=== PATIENT | male | born 1930 | race Caucasian/White ===

== ENCOUNTER 2016-10-17 15:50 | Emergency (ER) | payer OTHER, MEDICARE ==
[~2016-10-17] VITALS: Ht 170.1 cm; Wt 84.8 kg
[~2016-10-17 15:50] MED LIST: FLOMAX0.4 MG PO; LEVOFLOXACIN500 MG PO; PROPECIA1 MG PO; PT UNSURE OF MEDS; SIMVASTATIN1 GM PO; VIBRAMYCIN100 MG PO; VITAMIN D22000 UNIT PO; ZOLOFT100 MG PO
[2016-10-17 16:51] LABS: BASO % 0.6 % (0.0-1.0); EOS # 0.2 10*3/uL (0.0-0.4); HEMATOCRIT 39.2 % (42.0-52.0); HEMOGLOBIN 12.6 g/dl (14.0-18.0); LYMPH # 1.5 10*3/uL (1.3-4.4); LYMPH % 22.9 % (27.0-41.0); MEAN CORPUSCULAR HGB 29.6 pg (27.0-31.0); MEAN CORPUSCULAR HGB CONC 32.1 g/dl (33.0-37.0); MEAN PLATELET VOLUME 8.9 fl (9.6-12.3); MONO # 0.9 10*3/uL (0.1-1.0); MONO % 13.9 % (3.0-9.0); NEUT # 3.8 10*3/uL (2.3-7.9); NEUT % 59.4 % (47.0-73.0); PLATELET COUNT AUTOMATED 199 10*3/uL (130-400); RED BLOOD COUNT 4.26 10*6/uL (4.50-5.90); RED CELL DISTRI WIDTH 14.7 % (0-14.5); WHITE BLOOD COUNT 6.3 10*3/uL (4.8-10.8)
[2016-10-17 17:03] LABS: BUN 19 mg/dl (7-24); CARBON DIOXIDE 28 mmol/L (21-32); CHLORIDE 108 mmol/L (98-107); EST GLOM FILT AFRICAN AMERICAN > 60 ml/min; GLUCOSE 105 mg/dL (65-99); POTASSIUM 4.1 mmol/L (3.5-5.1); SODIUM 145 mmol/L (136-145)
[2016-10-17 18:34] LABS: BILIRUBIN NEGATIVE (NEGATIVE); BLOOD NEGATIVE (NEGATIVE); CLARITY CLEAR (CLEAR); COLOR YELLOW (YELLOW); GLUCOSE NEGATIVE (NEGATIVE); KETONE NEGATIVE (NEGATIVE); LEUKO ESTERASE 1+ (NEGATIVE); NITRITE NEGATIVE (NEGATIVE); PROTEIN NEGATIVE (NEGATIVE); SPECIFIC GRAVITY 1.025 (1.005-1.030); UROBILINOGEN 0.2 E.U./dl (0.2-1.0)
[2016-10-17 18:46] LABS: URINE REFLEX COMMENT YES (NO)
[2016-10-17] MEDS ORDERED: KEFLEX500 M1 PO (22:24)
[2016-10-17] MEDS ORDERED: CIPRO500 MG PO (22:24)
== END 2016-10-17 22:28 | disposition home or self-care (01) ==
LOC: ED 15:50
PROVIDERS: Student in an Organized Health Care Education/Training Program
DX: N39.0 Urinary tract infection, site not specified (principal); L03.116 Cellulitis of left lower limb; L03.115 Cellulitis of right lower limb; E78.00 Pure hypercholesterolemia, unspecified; Z88.0 Allergy status to penicillin; Z88.2 Allergy status to sulfonamides; Z88.6 Allergy status to analgesic agent; Z79.899 Other long term (current) drug therapy

== ENCOUNTER 2017-10-22 16:38 | Inpatient (IN) | payer OTHER ==
[~2017-10-22] VITALS: Ht 170.2 cm; Wt 76.0 kg
[~2017-10-22 16:38] MED LIST changes: +CIPRO500 MG PO; +KEFLEX500 M1 PO
[2017-10-22 16:40] VITALS: BP 145/64
[2017-10-22 17:28] LABS: BASO % 0.1 % (0.0-1.0); EOS % 0.3 % (1.0-4.0); LYMPH # 1.1 10*3/uL (1.3-4.4); LYMPH % 15.5 % (27.0-41.0); MEAN CELL VOLUME 89.9 fl (80.0-94.0); MEAN CORPUSCULAR HGB CONC 32.3 g/dl (33.0-37.0); MEAN PLATELET VOLUME 9.6 fl (9.6-12.3); MONO # 1.4 10*3/uL (0.1-1.0); NEUT # 4.6 10*3/uL (2.3-7.9); NEUT % 63.7 % (47.0-73.0); PLATELET COUNT AUTOMATED 195 10*3/uL (130-400); RED BLOOD COUNT 3.45 10*6/uL (4.50-5.90); RED CELL DISTRI WIDTH 13.9 % (0-14.5); WHITE BLOOD COUNT 7.2 10*3/uL (4.8-10.8)
[2017-10-22 17:40] VITALS: BP 144/72
[2017-10-22 17:43] LABS: ALBUMIN 3.3 gm/dl (3.1-4.5); ALKALINE PHOSPHATASE 95 U/L (45-117); BUN 12 mg/dl (7-24); CHLORIDE 104 mmol/L (98-107); CREATININE 1.29 mg/dL (0.70-1.30); POTASSIUM 4.1 mmol/L (3.5-5.1); SGOT/AST 17 IU/L (3-35); SGPT/ALT 18 U/L (12-78); SODIUM 141 mmol/L (136-145); TOTAL PROTEIN 7.2 gm/dL (6.4-8.2)
[2017-10-22 18:40] VITALS: BP 140/72
[2017-10-22 19:40] VITALS: BP 136/78
[2017-10-22 20:30] VITALS: BP 130/52
[2017-10-22] MEDS ORDERED: SIMVASTATIN10 MG PO (21:44)
[2017-10-22] MEDS ORDERED: ELIQUIS5 M1 PO (21:44)
[2017-10-22] MEDS ORDERED: AMLODIPINE BESY10 MG PO (21:45)
[2017-10-22] MEDS ORDERED: FINASTERIDE5 M1 PO (21:46)
[2017-10-22] MEDS ORDERED: RANITIDINE HCL150 M1 PO (21:48)
[2017-10-22] MEDS ORDERED: LOTRIMIN 1%15 GM PO (21:49)
[2017-10-23] VITALS: BP 122/59
[2017-10-23 01:54] LABS: HEMATOCRIT 30.9 % (42.0-52.0); HEMOGLOBIN 10.1 g/dl (14.0-18.0); MEAN CELL VOLUME 88.8 fl (80.0-94.0); MEAN CORPUSCULAR HGB CONC 32.7 g/dl (33.0-37.0); MEAN PLATELET VOLUME 9.7 fl (9.6-12.3); PLATELET COUNT AUTOMATED 208 10*3/uL (130-400); RED BLOOD COUNT 3.48 10*6/uL (4.50-5.90); RED CELL DISTRI WIDTH 13.7 % (0-14.5); WHITE BLOOD COUNT 9.3 10*3/uL (4.8-10.8)
[2017-10-23 02:07] LABS: ACT PARTIAL THROMBO TIME 31.7 SECONDS (20.8-31.5); INTERNATIONAL NORM RATIO 1.2 (2.0-3.5)
[2017-10-23 02:13] LABS: ALBUMIN 3.3 gm/dl (3.1-4.5); ALKALINE PHOSPHATASE 95 U/L (45-117); BUN 13 mg/dl (7-24); CHLORIDE 103 mmol/L (98-107); CHOLESTEROL 129 mg/dL (<200); CREATININE 1.24 mg/dL (0.70-1.30); FREE T4 1.63 ng/dl (0.76-1.46); PHOSPHOROUS 2.2 mg/dL (2.5-4.9); POTASSIUM 3.7 mmol/L (3.5-5.1); SGOT/AST 17 IU/L (3-35); SGPT/ALT 17 U/L (12-78); SODIUM 139 mmol/L (136-145); TOTAL IRON BINDING CAPACITY 242 ug/dl (250-450); TOTAL PROTEIN 7.6 gm/dL (6.4-8.2); TRIGLYCERIDES 84 mg/dl (<150); VLDL CHOLESTEROL 17 mg/dL (6-40)
[2017-10-23 02:15] LABS: PLATELET SUFFICIENCY NORMAL (NORMAL); TOTAL CELLS COUNTED 100 #CELLS
[2017-10-23 02:30] LABS: HDL CHOLESTEROL 52 mg/dl (40-60); IRON 17 ug/dL (65-175); LDL CHOLESTEROL 60 mg/dL (9-159); THYROID STIM HORMONE (HS) 0.902 uIU/ml (0.358-4.75)
[2017-10-23 08:00] VITALS: BP 127/53
[2017-10-23 16:00] VITALS: BP 122/57
[2017-10-23 20:00] VITALS: BP 146/59
[2017-10-24] VITALS: BP 138/54
[2017-10-24 08:00] VITALS: BP 138/59
[2017-10-24 09:00] LABS: HEMOGLOBIN 9.9 g/dl (14.0-18.0); LYMPH # 0.8 10*3/uL (1.3-4.4); LYMPH % 8.3 % (27.0-41.0); MEAN CELL VOLUME 88.2 fl (80.0-94.0); MEAN CORPUSCULAR HGB 29.1 pg (27.0-31.0); MEAN PLATELET VOLUME 9.7 fl (9.6-12.3); MONO # 1.1 10*3/uL (0.1-1.0); MONO % 11.4 % (3.0-9.0); NEUT # 7.6 10*3/uL (2.3-7.9); NEUT % 79.5 % (47.0-73.0); RED CELL DISTRI WIDTH 13.9 % (0-14.5); WHITE BLOOD COUNT 9.5 10*3/uL (4.8-10.8)
[2017-10-24 09:13] LABS: BUN 19 mg/dl (7-24); CHLORIDE 105 mmol/L (98-107); CREATININE 1.17 mg/dL (0.70-1.30); POTASSIUM 3.4 mmol/L (3.5-5.1); SODIUM 140 mmol/L (136-145)
[2017-10-24 09:29] LABS: PLATELET COUNT AUTOMATED 283 10*3/uL (130-400)
[2017-10-24 16:00] VITALS: BP 115/49
[2017-10-24 20:00] VITALS: BP 134/63
[2017-10-25] VITALS: BP 138/69
[2017-10-25 08:00] VITALS: BP 116/48
[2017-10-25] MEDS ORDERED: LEVAQUIN750 M1 PO (11:03)
[2017-10-25] MEDS ORDERED: PREDNISONE10 MG PO (11:13)
[2017-10-25 12:00] VITALS: BP 122/56
== END 2017-10-25 14:30 | disposition home or self-care (01) | DRG 190 ==
LOC: ED 16:38 → 4E 19:34 → EDHOLD 19:34 → 4E 19:51
PROVIDERS: Internal Medicine; Nurse Practitioner Family; Student in an Organized Health Care Education/Training Program
DX: J44.0 Chronic obstructive pulmonary disease with (acute) lower respiratory infection (principal); J18.9 Pneumonia, unspecified organism; E87.2 Acidosis; I48.91 Unspecified atrial fibrillation; J44.1 Chronic obstructive pulmonary disease with (acute) exacerbation; D50.9 Iron deficiency anemia, unspecified; E78.00 Pure hypercholesterolemia, unspecified; N40.0 Benign prostatic hyperplasia without lower urinary tract symptoms; E78.5 Hyperlipidemia, unspecified; F32.9 Major depressive disorder, single episode, unspecified; Z88.0 Allergy status to penicillin; Z88.2 Allergy status to sulfonamides; Z88.6 Allergy status to analgesic agent; Z79.899 Other long term (current) drug therapy; Z87.891 Personal history of nicotine dependence; Z82.49 Family history of ischemic heart disease and other diseases of the circulatory system; Z83.6 Family history of other diseases of the respiratory system; Z80.0 Family history of malignant neoplasm of digestive organs

== ENCOUNTER 2017-12-04 09:15 | Inpatient (IN) | payer OTHER ==
[~2017-12-04] VITALS: Ht 167.6 cm; Wt 76.2 kg
[2017-12-04] VITALS (12 sets, daily range): BP systolic 97–162; BP diastolic 49–98
--- NOTE | ~2017-12-04 | O ---
[place], [place] OPERATIVE NOTE NAME: SISI SHOEMAKER UNIT #: [id number] ROOM: [facility] DOCTOR: MARTIN ARSHAD MD BIRTHDATE: [birth year] DOS: 12/04/2017 INDICATIONS: The patient has presented with chief complaint of tiredness, profound anemia, hemoglobin of 6, ____ Eliquis 5 mg b.i.d. He has had a colonoscopy recently in [facility]. PROCEDURE: Today's procedure part of investigation is panendoscopy. PREMEDICATION: Versed and Diprivan. SCOPE: Olympus forward-viewing gastroscope Q10 video. REPORT: After putting the patient in left lateral position and application of lubricant to the scope, the scope was introduced. Thereafter, under direct visualization, advanced through the length of esophagus without difficulty. Gastric pouch was entered. Mild gastritis seen. Duodenal bulb, second and third part inspected. Duodenitis was identified, photographed. Hypertrophic Dora's glands was noticed. No biopsy obtained due to the fact that the patient has been on Eliquis. Scope was gradually withdrawn. GI reflexion of the scope reveals cardia to be benign. Air was suctioned out. The patient was extubated, tolerated procedure well. IMPRESSION: Mild gastritis, duodenitis. PLAN AND DISCUSSION: Protonix 40 mg daily. We would suffice management. He had rectal examination also done. I did not see gross blood in his stool. He has had a colonoscopy done 3 weeks ago in [place] and he has been told he does not need another colonoscopy. I presume that means that he did not have any pathology in the colon. The source of blood loss, most likely secondary to anticoagulant-induced and supportive management after transfusion. Diet is going to be regular. Thank you very much indeed. [place], [place] OPERATIVE NOTE NAME: SISI SHOEMAKER UNIT #: [id number] ROOM: [facility] DOCTOR: MARTIN ARSHAD MD BIRTHDATE: [birth year] MARTIN ARSHAD MD CM:OPRECORD:OPERATIVE NOTE [id number] MARTIN ARSHAD MD 12/04/17 1701 interface
--- NOTE | ~2017-12-04 | CON ---
[place], [place] REPORT OF CONSULTATION NAME: SISI SHOEMAKER UNIT #: [id number] ROOM: [facility] DOCTOR: PAVITHRA RASMUSSENMARTIN BIRTHDATE: [birth year] DOS: 12/04/2017 HISTORY OF PRESENT ILLNESS: An 87-year-old patient who has presented with melanotic stools over the past few days. He has stopped his Eliquis since yesterday. When he presents to the ER, his H and H is 6 and 22 with platelet count of 240. INR normal. His BUN and creatinine 15 and 1.5. His electrolytes balance, liver function test normal. Troponin within normal limit. PAST MEDICAL HISTORY: Atrial fibrillation, hyperlipidemia, hypertension, vitamin D and B12 deficiency, gastroesophageal reflux, BPH, depression. PAST SURGICAL HISTORY: Cataracts, tonsillectomy and right knee and left knee arthroscopies. SOCIAL HISTORY: Old history of alcohol passive smoker. FAMILY HISTORY: Noncontributory. ALLERGIES: PENICILLIN, SULFA, ASPIRIN. MEDICATIONS: List has been reviewed, Eliquis 5 mg b.i.d. in addition to others. REVIEW OF SYSTEMS: HEENT: Denies double vision, blurred vision. RESPIRATORY: Denies acute shortness of breath. CARDIOVASCULAR: Denies acute chest pain. DIGESTIVE SYSTEM: Melanotic stool. PHYSICAL EXAMINATION: VITAL SIGNS: Stable. HEENT: Head normocephalic, nontraumatic. Mouth and buccal mucosa benign. NECK: Supple, no thyromegaly, no cervical lymphadenopathy. CHEST: Symmetric anatomy, equal expansion. No wheeze, no rhonchi. HEART: Atrial fibrillation, moderate ventricular response. ABDOMEN: Globular, soft. No hepato-organomegaly. Bowel sounds present. No pulsatile mass. EXTREMITIES: No cyanosis, no pedal edema. Knee scars of surgery was noticed. NEUROLOGIC: Alert, oriented to time, place, person. IMPRESSION: Profound anemia, melanotic stool, hemoglobin of 6. PLAN: Withholding Eliquis, endoscopic assessment of upper GI tract. OTHER ADJUNCTIVE DIAGNOSES: Atrial fibrillation, hypertension, hyperlipidemia. All has been recognized. PLAN AND DISCUSSION: Urgent endoscopy of upper GI tract due to profound anemia on continuation of blood loss. His Eliquis has been on hold since yesterday. [place], [place] REPORT OF CONSULTATION NAME: SISI SHOEMAKER UNIT #: [id number] ROOM: [facility] DOCTOR: PAVITHRA RASMUSSEN,MARTIN BIRTHDATE: [birth year] MARTIN ARSHAD MD CM:CONSTR:REPORT OF CONSULTATION 1512 12/05/17 0559 interface
[~2017-12-04 09:15] MED LIST changes: +AMLODIPINE BESY10 MG PO; +ELIQUIS5 M1 PO; +FINASTERIDE5 M1 PO; +LEVAQUIN750 M1 PO; +LOTRIMIN 1%15 GM PO; +PREDNISONE10 MG PO; +RANITIDINE HCL150 M1 PO; +SIMVASTATIN20 MG PO
[2017-12-04 09:58] LABS: BASO # 0.1 10*3/uL (0.0-0.1); BASO % 0.9 % (0.0-1.0); EOS # 0.1 10*3/uL (0.0-0.4); EOS % 1.2 % (1.0-4.0); HEMATOCRIT 22.3 % (42.0-52.0); HEMOGLOBIN 6.8 g/dl (14.0-18.0); LYMPH # 1.3 10*3/uL (1.3-4.4); LYMPH % 23.3 % (27.0-41.0); MEAN CELL VOLUME 83.2 fl (80.0-94.0); MEAN CORPUSCULAR HGB 25.4 pg (27.0-31.0); MEAN CORPUSCULAR HGB CONC 30.5 g/dl (33.0-37.0); MEAN PLATELET VOLUME 8.6 fl (9.6-12.3); MONO # 0.9 10*3/uL (0.1-1.0); MONO % 14.9 % (3.0-9.0); NEUT # 3.4 10*3/uL (2.3-7.9); NEUT % 59.3 % (47.0-73.0); PLATELET COUNT AUTOMATED 249 10*3/uL (130-400); RED BLOOD COUNT 2.68 10*6/uL (4.50-5.90); RED CELL DISTRI WIDTH 15.6 % (0-14.5); WHITE BLOOD COUNT 5.7 10*3/uL (4.8-10.8)
[2017-12-04 10:09] LABS: ACT PARTIAL THROMBO TIME 24.3 SECONDS (20.8-31.5)
[2017-12-04 10:16] LABS: ALBUMIN 3.5 gm/dl (3.1-4.5); ALKALINE PHOSPHATASE 92 U/L (45-117); BUN 15 mg/dl (7-24); CHLORIDE 109 mmol/L (98-107); CREATININE 1.53 mg/dL (0.70-1.30); SGOT/AST 9 IU/L (3-35); SGPT/ALT 11 U/L (12-78); SODIUM 143 mmol/L (136-145)
[2017-12-04 10:39] LABS: TROPONIN I < 0.015 ng/ml (<0.045)
[2017-12-04] MEDS ORDERED: RANITIDINE HCL150 M1 PO (12:14)
[2017-12-04] MEDS ORDERED: B121000 MCG/1 IM (12:16)
[2017-12-04 20:04] LABS: HEMATOCRIT 27.6 % (42.0-52.0); HEMOGLOBIN 8.6 g/dl (14.0-18.0)
[2017-12-05] VITALS (11 sets, daily range): BP systolic 91–129; BP diastolic 42–61
[2017-12-05 05:53] LABS: ALBUMIN 2.9 gm/dl (3.1-4.5); ALKALINE PHOSPHATASE 80 U/L (45-117); BUN 18 mg/dl (7-24); CHLORIDE 111 mmol/L (98-107); CHOLESTEROL 130 mg/dL (<200); FREE T4 0.89 ng/dl (0.76-1.46); HDL CHOLESTEROL 52 mg/dl (40-60); LDL CHOLESTEROL 65 mg/dL (9-159); PHOSPHOROUS 3.2 mg/dL (2.5-4.9); POTASSIUM 4.1 mmol/L (3.5-5.1); SGOT/AST 11 IU/L (3-35); SGPT/ALT 11 U/L (12-78); SODIUM 145 mmol/L (136-145); TOTAL PROTEIN 5.9 gm/dL (6.4-8.2); TRIGLYCERIDES 64 mg/dl (<150); VLDL CHOLESTEROL 13 mg/dL (6-40)
[2017-12-05 06:06] LABS: BASO # 0.1 10*3/uL (0.0-0.1); BASO % 0.7 % (0.0-1.0); EOS # 0.1 10*3/uL (0.0-0.4); EOS % 1.1 % (1.0-4.0); HEMATOCRIT 24.7 % (42.0-52.0); HEMOGLOBIN 7.8 g/dl (14.0-18.0); LYMPH # 1.1 10*3/uL (1.3-4.4); LYMPH % 15.8 % (27.0-41.0); MEAN CELL VOLUME 84.9 fl (80.0-94.0); MEAN CORPUSCULAR HGB 26.8 pg (27.0-31.0); MEAN CORPUSCULAR HGB CONC 31.6 g/dl (33.0-37.0); MEAN PLATELET VOLUME 9.4 fl (9.6-12.3); MONO % 13.8 % (3.0-9.0); NEUT # 4.9 10*3/uL (2.3-7.9); NEUT % 68.2 % (47.0-73.0); PLATELET COUNT AUTOMATED 240 10*3/uL (130-400); RED BLOOD COUNT 2.91 10*6/uL (4.50-5.90); RED CELL DISTRI WIDTH 15.2 % (0-14.5); WHITE BLOOD COUNT 7.2 10*3/uL (4.8-10.8)
[2017-12-05 06:46] LABS: VITAMIN D, 25-HYDROXY 49.3 ng/mL (30-100)
[2017-12-06 00:04] VITALS: BP 116/63
[2017-12-06 06:12] LABS: HEMATOCRIT 29.8 % (42.0-52.0); HEMOGLOBIN 9.3 g/dl (14.0-18.0)
[2017-12-06 08:00] VITALS: BP 132/70
[2017-12-06 12:00] VITALS: BP 109/51; BP 149/71
[2017-12-06 16:00] VITALS: BP 111/56
[2017-12-06 20:00] VITALS: BP 106/57
[2017-12-07] VITALS: BP 118/71
[2017-12-07 06:11] LABS: HEMATOCRIT 29.7 % (42.0-52.0); HEMOGLOBIN 9.2 g/dl (14.0-18.0); MEAN CELL VOLUME 85.1 fl (80.0-94.0); MEAN CORPUSCULAR HGB 26.4 pg (27.0-31.0); MEAN PLATELET VOLUME 9.2 fl (9.6-12.3); PLATELET COUNT AUTOMATED 235 10*3/uL (130-400); RED BLOOD COUNT 3.49 10*6/uL (4.50-5.90); RED CELL DISTRI WIDTH 15.5 % (0-14.5); WHITE BLOOD COUNT 11.5 10*3/uL (4.8-10.8)
[2017-12-07 06:31] LABS: CREATININE 1.52 mg/dL (0.70-1.30); POTASSIUM 4.5 mmol/L (3.5-5.1)
[2017-12-07 07:09] LABS: ATYPICAL LYMPHS 1 % (0-0); PLATELET SUFFICIENCY NORMAL (NORMAL); POLYCHROMASIA SLIGHT; TOTAL CELLS COUNTED 100 #CELLS
[2017-12-07 08:00] VITALS: BP 122/75
[2017-12-07 12:00] VITALS: BP 94/42
[2017-12-07 16:00] VITALS: BP 106/63
[2017-12-07 20:00] VITALS: BP 121/75
[2017-12-08] VITALS: BP 120/74
[2017-12-08 07:09] LABS: BASO # 0.1 10*3/uL (0.0-0.1); BASO % 0.6 % (0.0-1.0); EOS # 0.1 10*3/uL (0.0-0.4); HEMATOCRIT 29.1 % (42.0-52.0); LYMPH % 10.3 % (27.0-41.0); MEAN CELL VOLUME 86.4 fl (80.0-94.0); MEAN CORPUSCULAR HGB 26.7 pg (27.0-31.0); MEAN CORPUSCULAR HGB CONC 30.9 g/dl (33.0-37.0); MEAN PLATELET VOLUME 9.8 fl (9.6-12.3); MONO # 1.5 10*3/uL (0.1-1.0); MONO % 14.9 % (3.0-9.0); NEUT # 7.2 10*3/uL (2.3-7.9); NEUT % 72.7 % (47.0-73.0); PLATELET COUNT AUTOMATED 230 10*3/uL (130-400); RED BLOOD COUNT 3.37 10*6/uL (4.50-5.90); RED CELL DISTRI WIDTH 15.8 % (0-14.5); WHITE BLOOD COUNT 9.9 10*3/uL (4.8-10.8)
[2017-12-08 07:33] LABS: CREATININE 1.48 mg/dL (0.70-1.30); POTASSIUM 3.9 mmol/L (3.5-5.1)
[2017-12-08 08:00] VITALS: BP 118/62
[2017-12-08 12:00] VITALS: BP 90/64
[2017-12-08 16:00] VITALS: BP 104/61; BP 126/65
[2017-12-08 20:00] VITALS: BP 115/58
[2017-12-09] VITALS: BP 102/61
[2017-12-09 06:06] LABS: BASO # 0.1 10*3/uL (0.0-0.1); BASO % 0.5 % (0.0-1.0); EOS # 0.1 10*3/uL (0.0-0.4); EOS % 1.3 % (1.0-4.0); HEMATOCRIT 28.7 % (42.0-52.0); LYMPH % 9.8 % (27.0-41.0); MEAN CELL VOLUME 86.2 fl (80.0-94.0); MEAN CORPUSCULAR HGB CONC 31.4 g/dl (33.0-37.0); MEAN PLATELET VOLUME 9.5 fl (9.6-12.3); MONO # 1.5 10*3/uL (0.1-1.0); MONO % 14.1 % (3.0-9.0); NEUT # 7.7 10*3/uL (2.3-7.9); NEUT % 73.8 % (47.0-73.0); PLATELET COUNT AUTOMATED 240 10*3/uL (130-400); RED BLOOD COUNT 3.33 10*6/uL (4.50-5.90); RED CELL DISTRI WIDTH 15.9 % (0-14.5); WHITE BLOOD COUNT 10.5 10*3/uL (4.8-10.8)
[2017-12-09 06:33] VITALS: BP 112/56
[2017-12-09 06:37] LABS: CREATININE 1.5 mg/dL (0.70-1.30); POTASSIUM 4.4 mmol/L (3.5-5.1)
[2017-12-09] MEDS ORDERED: METOPROLOL TART50 M1 PO (13:24)
[2017-12-09] MEDS ORDERED: PANTOPRAZOLE SO40 MG PO (13:24)
[2017-12-09] MEDS ORDERED: NATURE'S BLEND F1 MG PO (13:24)
== END 2017-12-09 13:47 | disposition home or self-care (01) | DRG 377 ==
LOC: ED 09:15 → ICCU 10:55 → 5E 10:55 → EDHOLD 10:55 → ICCU 11:01 → 5E 12-05 16:08
PROVIDERS: Family Medicine; Internal Medicine; Internal Medicine Gastroenterology; Nurse Practitioner Family
PROC: 30233N1 Transfusion of Nonautologous Red Blood Cells into Peripheral Vein, Percutaneous Approach (ICD-10-PCS; principal; 2017-12-04)
PROC: 0DJ08ZZ Inspection of Upper Intestinal Tract, Via Natural or Artificial Opening Endoscopic (ICD-10-PCS; 2017-12-04)
DX: K29.71 Gastritis, unspecified, with bleeding (principal); N17.0 Acute kidney failure with tubular necrosis; R65.11 Systemic inflammatory response syndrome (SIRS) of non-infectious origin with acute organ dysfunction; D62 Acute posthemorrhagic anemia; Z68.27 Body mass index [BMI] 27.0-27.9, adult; D53.8 Other specified nutritional anemias; E87.8 Other disorders of electrolyte and fluid balance, not elsewhere classified; K29.81 Duodenitis with bleeding; I48.0 Paroxysmal atrial fibrillation; K21.9 Gastro-esophageal reflux disease without esophagitis; D72.810 Lymphocytopenia; F32.9 Major depressive disorder, single episode, unspecified; E78.00 Pure hypercholesterolemia, unspecified; E55.9 Vitamin D deficiency, unspecified; N40.0 Benign prostatic hyperplasia without lower urinary tract symptoms; I10 Essential (primary) hypertension; F10.21 Alcohol dependence, in remission; E66.3 Overweight; T45.515A Adverse effect of anticoagulants, initial encounter; Y92.89 Other specified places as the place of occurrence of the external cause; Z88.6 Allergy status to analgesic agent; Z88.0 Allergy status to penicillin; Z88.2 Allergy status to sulfonamides; Z87.891 Personal history of nicotine dependence; Z82.49 Family history of ischemic heart disease and other diseases of the circulatory system; Z82.5 Family history of asthma and other chronic lower respiratory diseases; Z80.0 Family history of malignant neoplasm of digestive organs; Z98.49 Cataract extraction status, unspecified eye; Z90.49 Acquired absence of other specified parts of digestive tract; Z79.899 Other long term (current) drug therapy; Z79.01 Long term (current) use of anticoagulants

== ENCOUNTER 2017-12-29 10:14 | Inpatient (IN) | payer OTHER ==
[2017-12-29] VITALS (9 sets, daily range): BP systolic 90–139; BP diastolic 48–78
[~2017-12-29] VITALS: Ht 162.6 cm; Wt 80.5 kg
[~2017-12-29 10:14] MED LIST changes: +B121000 MCG/1 IM; +METOPROLOL TART50 M1 PO; +NATURE'S BLEND F1 MG PO; +PANTOPRAZOLE SO40 MG PO
[2017-12-29 11:07] LABS: BASO # 0.1 10*3/uL (0.0-0.1); BASO % 0.9 % (0.0-1.0); EOS # 0.1 10*3/uL (0.0-0.4); EOS % 1.9 % (1.0-4.0); HEMATOCRIT 30.4 % (42.0-52.0); LYMPH # 1.2 10*3/uL (1.3-4.4); LYMPH % 21.6 % (27.0-41.0); MEAN CELL VOLUME 87.1 fl (80.0-94.0); MEAN CORPUSCULAR HGB 25.8 pg (27.0-31.0); MEAN CORPUSCULAR HGB CONC 29.6 g/dl (33.0-37.0); MEAN PLATELET VOLUME 9.1 fl (9.6-12.3); MONO # 0.8 10*3/uL (0.1-1.0); MONO % 14.1 % (3.0-9.0); NEUT # 3.5 10*3/uL (2.3-7.9); PLATELET COUNT AUTOMATED 266 10*3/uL (130-400); RED BLOOD COUNT 3.49 10*6/uL (4.50-5.90); RED CELL DISTRI WIDTH 20.1 % (0-14.5); WHITE BLOOD COUNT 5.7 10*3/uL (4.8-10.8)
[2017-12-29 11:14] LABS: INTERNATIONAL NORM RATIO 1.2 (2.0-3.5)
[2017-12-29 11:23] LABS: ALBUMIN 3.5 gm/dl (3.1-4.5); ALKALINE PHOSPHATASE 90 U/L (45-117); BUN 16 mg/dl (7-24); CHLORIDE 108 mmol/L (98-107); CREATININE 1.22 mg/dL (0.70-1.30); POTASSIUM 3.9 mmol/L (3.5-5.1); SGOT/AST 10 IU/L (3-35); SGPT/ALT 9 U/L (12-78); SODIUM 143 mmol/L (136-145); TOTAL PROTEIN 6.9 gm/dL (6.4-8.2)
[2017-12-29 11:24] LABS: TROPONIN I < 0.015 ng/ml (<0.045)
[2017-12-29] MEDS ORDERED: IRON325 M1 PO (12:14)
[2017-12-29 14:41] LABS: FREE T4 0.98 ng/dl (0.76-1.46); PHOSPHOROUS 3.2 mg/dL (2.5-4.9); TROPONIN I < 0.015 ng/ml (<0.045)
[2017-12-30] VITALS: BP 116/79
[2017-12-30 02:00] VITALS: BP 108/60
[2017-12-30 04:00] VITALS: BP 118/60
[2017-12-30 06:00] VITALS: BP 124/62
[2017-12-30 06:06] LABS: ALBUMIN 3.2 gm/dl (3.1-4.5); CREATININE 1.37 mg/dL (0.70-1.30); POTASSIUM 4.6 mmol/L (3.5-5.1); TOTAL PROTEIN 6.6 gm/dL (6.4-8.2)
[2017-12-30 06:21] LABS: BASO # 0.1 10*3/uL (0.0-0.1); BASO % 0.7 % (0.0-1.0); EOS # 0.1 10*3/uL (0.0-0.4); EOS % 1.3 % (1.0-4.0); HEMATOCRIT 29.7 % (42.0-52.0); LYMPH # 1.5 10*3/uL (1.3-4.4); LYMPH % 16.9 % (27.0-41.0); MEAN CELL VOLUME 87.1 fl (80.0-94.0); MEAN CORPUSCULAR HGB 26.4 pg (27.0-31.0); MEAN CORPUSCULAR HGB CONC 30.3 g/dl (33.0-37.0); MEAN PLATELET VOLUME 9.3 fl (9.6-12.3); MONO % 11.9 % (3.0-9.0); NEUT % 68.9 % (47.0-73.0); PLATELET COUNT AUTOMATED 261 10*3/uL (130-400); RED BLOOD COUNT 3.41 10*6/uL (4.50-5.90); RED CELL DISTRI WIDTH 20.6 % (0-14.5); WHITE BLOOD COUNT 8.7 10*3/uL (4.8-10.8)
[2017-12-30 08:00] VITALS: BP 102/66
[2017-12-30 12:00] VITALS: BP 106/62
[2017-12-30] MEDS ORDERED: SLOW RELEASE I159 MG PO (14:44)
[2017-12-30] MEDS ORDERED: METOPROLOL SUC100 M1 PO (14:44)
[2017-12-30] MEDS ORDERED: VITAMIN D31000 UNIT PO (14:44)
== END 2017-12-30 15:25 | disposition home or self-care (01) | DRG 309 ==
LOC: ED 10:14 → 5E 12:06 → EDHOLD 12:06 → 5E 12:34
PROVIDERS: Internal Medicine Hospice and Palliative Medicine; Nurse Practitioner Family
DX: I48.91 Unspecified atrial fibrillation (principal); R65.10 Systemic inflammatory response syndrome (SIRS) of non-infectious origin without acute organ dysfunction; D68.59 Other primary thrombophilia; E87.8 Other disorders of electrolyte and fluid balance, not elsewhere classified; D50.9 Iron deficiency anemia, unspecified; F10.21 Alcohol dependence, in remission; D72.810 Lymphocytopenia; R73.9 Hyperglycemia, unspecified; N40.0 Benign prostatic hyperplasia without lower urinary tract symptoms; F32.9 Major depressive disorder, single episode, unspecified; K21.9 Gastro-esophageal reflux disease without esophagitis; E78.00 Pure hypercholesterolemia, unspecified; E53.8 Deficiency of other specified B group vitamins; E55.9 Vitamin D deficiency, unspecified; I10 Essential (primary) hypertension; E66.3 Overweight; Z68.27 Body mass index [BMI] 27.0-27.9, adult; Z88.2 Allergy status to sulfonamides; Z88.0 Allergy status to penicillin; Z90.49 Acquired absence of other specified parts of digestive tract; Z98.49 Cataract extraction status, unspecified eye; Z87.891 Personal history of nicotine dependence; Z82.49 Family history of ischemic heart disease and other diseases of the circulatory system; Z83.6 Family history of other diseases of the respiratory system; Z80.0 Family history of malignant neoplasm of digestive organs; Z79.01 Long term (current) use of anticoagulants; Z86.11 Personal history of tuberculosis; Z79.899 Other long term (current) drug therapy

== ENCOUNTER 2018-09-16 16:37 | Emergency (ER) | payer MEDICARE, OTHER ==
[~2018-09-16] VITALS: Ht 167.6 cm; Wt 68.0 kg
[~2018-09-16 16:37] MED LIST changes: +IRON325 M1 PO; +METOPROLOL SUC100 M1 PO; +SLOW RELEASE I159 MG PO; +VITAMIN D31000 UNIT PO
[2018-09-16 17:44] LABS: BASO # 0.1 10*3/uL (0.0-0.1); BASO % 0.5 % (0.0-1.0); EOS % 0.3 % (1.0-4.0); HEMOGLOBIN 12.7 g/dl (14.0-18.0); LYMPH # 0.9 10*3/uL (1.3-4.4); LYMPH % 7.9 % (27.0-41.0); MEAN CELL VOLUME 97.3 fl (80.0-94.0); MEAN CORPUSCULAR HGB 30.9 pg (27.0-31.0); MEAN CORPUSCULAR HGB CONC 31.8 g/dl (33.0-37.0); MEAN PLATELET VOLUME 9.3 fl (9.6-12.3); MONO # 1.2 10*3/uL (0.1-1.0); MONO % 11.1 % (3.0-9.0); NEUT # 8.8 10*3/uL (2.3-7.9); NEUT % 79.9 % (47.0-73.0); PLATELET COUNT AUTOMATED 208 10*3/uL (130-400); RED BLOOD COUNT 4.11 10*6/uL (4.50-5.90); RED CELL DISTRI WIDTH 14.7 % (0-14.5)
[2018-09-16 18:01] LABS: ALBUMIN 3.8 gm/dl (3.1-4.5); ALKALINE PHOSPHATASE 106 U/L (45-117); BUN 16 mg/dl (7-24); CHLORIDE 105 mmol/L (98-107); CREATININE 1.29 mg/dL (0.70-1.30); POTASSIUM 4.1 mmol/L (3.5-5.1); SGOT/AST 12 IU/L (3-35); SGPT/ALT 14 U/L (12-78); SODIUM 142 mmol/L (136-145); TOTAL PROTEIN 7.5 gm/dL (6.4-8.2)
== END 2018-09-16 18:40 | disposition home or self-care (01) ==
LOC: ED 16:37
PROVIDERS: Emergency Medicine
DX: S00.83XA Contusion of other part of head, initial encounter (principal); Z23 Encounter for immunization; Z88.2 Allergy status to sulfonamides; Z88.0 Allergy status to penicillin; Z87.891 Personal history of nicotine dependence; Y04.8XXA Assault by other bodily force, initial encounter; Y93.89 Activity, other specified; Y92.89 Other specified places as the place of occurrence of the external cause; Y99.8 Other external cause status

== ENCOUNTER 2018-11-07 20:19 | Inpatient (IN) | payer MEDICARE ==
[~2018-11-07] VITALS: Ht 170.1 cm; Wt 73.7 kg
--- NOTE | ~2018-11-07 | EKG ---
[place], [place] ELECTROCARDIOGRAM REPORT NAME: SISI SHOEMAKER UNIT #: [id number] ROOM: 526 DOCTOR: TANIYA DRAFT REPORT BIRTHDATE: [birth year] [facility] Test Date: 2018-11-08 Test Time: 22:28:34 Pat Name: SISI SHOEMAKER Department: Room: 526 1 Gender: M Pharmacy Clerk: MAGUE : 1930 Requested By: NEAL MUÑOZ Order Number: [id number] Reading MD: Boo Jeter MD Measurements Intervals [place] Rate: 99 P: ID: QRS: -44 QRSD: 90 T: 14 QT: 360 QTc: 462 Interpretive Statements Atrial fibrillation Left anterior fascicular block Anterior infarct, old Electronically Signed On 11-12-2018 9:35:09 PST by Boo Jeter MD CM:EKGRPT:ELECTROCARDIOGRAM REPORT [id number] NEAL YAN DRAFT REPORT NEAL MUÑOZ DO
--- NOTE | ~2018-11-07 | EKG ---
[place], [place] ELECTROCARDIOGRAM REPORT NAME: SISI SHOEMAKER UNIT #: [id number] ROOM: 526 DOCTOR: TANIYA DRAFT REPORT BIRTHDATE: [birth year] [facility] Test Date: 2018-11-07 Test Time: 20:49:11 Pat Name: SISI SHOEMAKER Department: Room: 526 Gender: M Linoleum Installer: Bria Peck : 1930 Requested By: NENA RIVAS Order Number: [id number] Reading MD: Felipe Gunter MD Measurements Intervals [place] Rate: 94 P: [place]: QRS: -43 QRSD: 89 T: 22 QT: 387 QTc: 485 Interpretive Statements Atrial fibrillation Left anterior fascicular block Anterior infarct, old Baseline wander in lead(s) V5 Electronically Signed On 11-08-2018 21:33:48 PST by Felipe Gunter MD CM:EKGRPT:ELECTROCARDIOGRAM REPORT 48 32 NENA YAN DRAFT REPORT NENA RIVAS DO
[2018-11-07 20:28] VITALS: BP 208/123
[2018-11-07 20:39] VITALS: BP 186/92
[2018-11-07 20:59] LABS: BASO # 0.1 10*3/uL (0.0-0.1); BASO % 0.9 % (0.0-1.0); EOS # 0.1 10*3/uL (0.0-0.4); EOS % 1.7 % (1.0-4.0); LYMPH % 14.9 % (27.0-41.0); MEAN CELL VOLUME 93.5 fl (80.0-94.0); MEAN CORPUSCULAR HGB 30.4 pg (27.0-31.0); MEAN CORPUSCULAR HGB CONC 32.5 g/dl (33.0-37.0); MEAN PLATELET VOLUME 9.5 fl (9.6-12.3); MONO # 0.8 10*3/uL (0.1-1.0); NEUT # 4.6 10*3/uL (2.3-7.9); NEUT % 69.6 % (47.0-73.0); PLATELET COUNT AUTOMATED 207 10*3/uL (130-400); RED BLOOD COUNT 4.28 10*6/uL (4.50-5.90); RED CELL DISTRI WIDTH 14.9 % (0-14.5); WHITE BLOOD COUNT 6.6 10*3/uL (4.8-10.8)
[2018-11-07 21:16] LABS: ALBUMIN 3.4 gm/dl (3.1-4.5); ALKALINE PHOSPHATASE 115 U/L (45-117); BUN 19 mg/dl (7-24); CHLORIDE 107 mmol/L (98-107); CREATININE 1.43 mg/dL (0.70-1.30); POTASSIUM 4.4 mmol/L (3.5-5.1); SGOT/AST 16 IU/L (3-35); SGPT/ALT 15 U/L (12-78); SODIUM 141 mmol/L (136-145); TOTAL PROTEIN 7.3 gm/dL (6.4-8.2)
[2018-11-07 21:17] LABS: TROPONIN I < 0.015 ng/ml (<0.045)
[2018-11-07 21:23] VITALS: BP 178/94
--- NOTE | 2018-11-07 23:02 | NUR ---
9 SUTURES APPILED, PT TOLERATED WELL.
--- NOTE | 2018-11-07 23:20 | NUR ---
ATTEMPTED TO ASSIST PT WITH AMBULATION, PT WAS VERY DIZZINES AND HAD TO RETURN TO THE BED, DR NOVAK NOTIFIED.
[2018-11-07 23:21] VITALS: BP 174/102
--- NOTE | 2018-11-07 23:21 | NUR ---
PRESSURE DRESSING APPILED TO SUTURES, BACITRIACIN AND STERILE 4X4.
[2018-11-08] VITALS (9 sets, daily range): BP systolic 113–180; BP diastolic 65–94
--- NOTE | 2018-11-08 00:15 | NUR ---
A 88, admitted to , under the services of NEAL Smith DO with a diagnosis of HTN URGENCY,AMBULATORY DYSFUNCTION,LACERATION,GENERALIZED WEAKNESS,FALL. Chief complaint is FELL ON ICE. Patient arrived via bed from ER. Monitor applied. Initial assessment completed. Vital signs taken and recorded. NEAL SMITH DO notified of admission to the unit. Orders received. See assessment for past medical history, medications and allergies. Patient and/or family oriented to unit. [facility] visitation policy reviewed. Clothing/patient valuable form completed. MARAL DAVIS R
--- NOTE | 2018-11-08 00:50 | NUR ---
PHOTO TAKEN OF Griselda SHAFFER PER POLICY.
--- NOTE | 2018-11-08 00:51 | NUR ---
DR BUSTILLO CALLED AND MADE AWARE THAT PATIENT DOES NOT KNOW HOME MEDICATIONS. [facility] AND WILL HAVE SOMEONE BRING HIS LIST IN TOMORROW. ELIQUIS DOSE WAS SCHEDULED FOR NOW- DOES NOT NEED THIS DOSE- IT WAS CANCELLED.
--- NOTE | 2018-11-08 04:12 | NUR ---
TELEPHONE SOLICITOR SUPERVISOR CALLED- PT HAD 5 BEAT RUN OF VTACH. PATIENT SLEEPING AT THIS TIME. WILL MONITOR.
--- NOTE | 2018-11-08 04:57 | NUR ---
DR BUSTILLO CALLED, PT HAD 2 5 BEAT RUNS OF VTACH 40 MINUTES APART. PATIENT SLEEPING DURING BOTH EPISODES. NO NEW ORDERS AT THIS TIME. WILL MONITOR.
[2018-11-08 06:14] LABS: BASO # 0.1 10*3/uL (0.0-0.1); BASO % 0.6 % (0.0-1.0); EOS # 0.1 10*3/uL (0.0-0.4); EOS % 0.8 % (1.0-4.0); HEMATOCRIT 39.7 % (42.0-52.0); HEMOGLOBIN 12.4 g/dl (14.0-18.0); LYMPH % 10.3 % (27.0-41.0); MEAN CELL VOLUME 93.2 fl (80.0-94.0); MEAN CORPUSCULAR HGB 29.1 pg (27.0-31.0); MEAN CORPUSCULAR HGB CONC 31.2 g/dl (33.0-37.0); MEAN PLATELET VOLUME 9.8 fl (9.6-12.3); MONO # 1.1 10*3/uL (0.1-1.0); MONO % 11.1 % (3.0-9.0); NEUT # 7.8 10*3/uL (2.3-7.9); NEUT % 76.7 % (47.0-73.0); PLATELET COUNT AUTOMATED 204 10*3/uL (130-400); RED BLOOD COUNT 4.26 10*6/uL (4.50-5.90); RED CELL DISTRI WIDTH 14.8 % (0-14.5); WHITE BLOOD COUNT 10.1 10*3/uL (4.8-10.8)
[2018-11-08 06:38] LABS: BUN 14 mg/dl (7-24); CHLORIDE 106 mmol/L (98-107); CHOLESTEROL 182 mg/dL (<200); CREATININE 1.11 mg/dL (0.70-1.30); PHOSPHOROUS 2.9 mg/dL (2.5-4.9); POTASSIUM 4.3 mmol/L (3.5-5.1); SODIUM 140 mmol/L (136-145)
[2018-11-08 06:50] LABS: FREE T4 0.96 ng/dl (0.76-1.46); HDL CHOLESTEROL 57 mg/dl (40-60); LDL CHOLESTEROL 110 mg/dL (9-159); TRIGLYCERIDES 74 mg/dl (<150); VLDL CHOLESTEROL 15 mg/dL (6-40)
[2018-11-08 07:56] LABS: VITAMIN D, 25-HYDROXY 37.5 ng/mL (30-100)
--- NOTE | 2018-11-08 08:36 | NUR ---
MEDICATED WITH PRN PO NORCO FOR GENERALIZED/ARMS SORENESS POST FALL YESTERDAY.
--- NOTE | 2018-11-08 09:00 | NUR ---
Tax Manager Cpa in to talk to patient. Patient states lives at home alone. There are 0 steps in the home. Physician: Dr. Moreland [place]: [place] Home health services: none Patient's level of ADLs: INDEPENDENT Patient has working utilities: yes DME: none Follow-up physician's appointment after d/c: will be made by the hospitalist nurse director upon discharge Does patient want to access PORTAL?: no Discharge plan discussed with patient. He lives in [place] by himself. His family checks in on him occasionally. He is independent in his ADLs and ambulation. Discussed home health care services and he denies any home needs at this time. When medically stable he will be discharged to home. ELISSA MCCABE
--- NOTE | 2018-11-08 09:47 | NUR ---
PATIENT PROVIDED CONSENT TO RELEASE OF INFORMATION FROM THE [facility] FOR A CURRENT MEDICATIONS LIST, WHICH WAS FAXED THIS MORNING.
--- NOTE | 2018-11-08 09:57 | NUR ---
PRN PO NORCO SOMEWHAT EFFECTIVE, PER PATIENT; HE IS STILL SORE.
--- NOTE | 2018-11-08 14:10 | NUR ---
Nursing screen and Occupational Therapy referral received. Thank you. Fina Jiang OTR/L
--- NOTE | 2018-11-08 14:10 | NUR ---
MEDICATED WITH PRN PO NORCO FOR BILATERAL ARMS PAIN AND STIFFNESS.
--- NOTE | 2018-11-08 15:11 | NUR ---
SISI SHOEMAKER [id number] Please refer to the physician's history and physical for past medical history, comorbid conditions, and allergies. Diagnosis: HYPERTENSIVE URGENCY AMBULATORY DYSFUNCTION Shine Score: 17,AT RISK WOUND DESCRIPTIONS: Location of the wound: right forehead Type of wound: laceration Thickness: Partial Size: 4.1cm X 0.1cm X <0.1cm Tunneling: none Undermining: none Sinus Tract: none Presence of Exudate: Sanguineous Amount: Light Color: Red Odor: None Periwound Skin Appearance: Erythema Wound edges: closed with 9 intact sutures Pain (associated with wound): tender to touch How does patient state this happened? patient states he fell on ice at home. Location of the wound: right cheek Type of wound: laceration Thickness: Partial Size: 1.2cm X 1.0cm X <0.1cm Tunneling: none Undermining: none Sinus Tract: none Presence of Exudate: none Amount: None Color: Red Odor: None Periwound Skin Appearance: Erythema Wound edges: closed. intact scab Pain (associated with wound): denied at time of assessment How does patient state this happened? patient states he fell on ice at home Location of the wound: left middle finger Type of wound: laceration Thickness: Partial Size: 0.1cm X 1.0cm X <0.1cm Tunneling: none Undermining: none Sinus Tract: none Presence of Exudate: none Amount: None Color: Red Odor: None Periwound Skin Appearance: Normal Wound edges: closed. intact scab Pain (associated with wound): denied at time of assessment How does patient state this happened? patient states he noticed this area after he fell on ice. Surface the patient is resting on: Isoflex SKIN PREVENTION RECOMMENDATION: 1. Pressure redistribution support surface as appropriate 2. Elevate heels 3. Remove boots/TEDS every shift and reapply 4. Head of bed 30 degrees as tolerated 5. Assess nutrition and hydration 6. Manage moisture 7. Avoid the use of containment devices while in bed 8. Use absorptive products on surfaces limit layers of linens on bed 9. Turn and reposition every 1-2 hours in bed and every 1 hour in chair as tolerated 10. Weight shifts every 15 minutes while up in chair 11. Offloading with pillows or device to keep heels elevated off bed 12. Monitor skin at least every shift 13. Inspect under medical devices twice a day WOUND TREATMENT RECOMMENDATIONS: Apply bacitracin to right forehead, right cheek and left middle finger BID. Cover right forehead with dry dressing. May leave right cheek and middle finger open to air.
--- NOTE | 2018-11-08 15:42 | NUR ---
PRN PO NORCO SOMEWHAT EFFECTIVE, PER PATIENT.
--- NOTE | 2018-11-08 15:57 | NUR ---
Dr. Queen notified of wound care recommendations.
--- NOTE | 2018-11-08 17:15 | NUR ---
PATIENT HAD 5 BEAT RUN OF V-TACHY WITH NO SYMPTOMS.
--- NOTE | 2018-11-08 18:48 | NUR ---
MEDICATED WITH PRN PO NORCO FOR GENERALIZED BODY/ARMS/HANDS PAIN.
--- NOTE | 2018-11-08 21:00 | NUR ---
PT MEDICATED WITH PO TYLENOL FOR C/O PAIN IN BL WRISTS 02/18. WILL MONITOR EFFECTIVENESS. CALL LIGHT LEFT IN REACH.
--- NOTE | 2018-11-08 22:22 | NUR ---
NOTIFIED OF PT HAVING SHORT 4 BEAT RUN AND THEN 8 BEAT RUN OF VTACH. STAT EKG ORDERED. NO OTHER ORDERS RECEIVED.
[2018-11-09] VITALS: BP 111/70
[2018-11-09 08:00] VITALS: BP 170/94
--- NOTE | 2018-11-09 09:00 | NUR ---
Scouring Pads Supervisor in to see patient. Discussed short term SNF and he is not agreeable at this time. He states the time has to be just right. He is upset about his food tray being placed out of his reach and his call light being wrapped around the side rail. Explained CM was sorry and moved his tray closer and placed his call light on his lap. He requested to be cleaned as he was soiled. Notified aides. Will follow up at a later time.
[2018-11-09] MEDS ORDERED: DILTIAZEM 24HR180 MG PO (09:32)
[2018-11-09] MEDS ORDERED: IRON325 M1 PO (09:34)
--- NOTE | 2018-11-09 09:36 | NUR ---
[facility] FAXED THE [facility] LIST REQUESTED YESTERDAY. MED REC UPDATED/CORRECTED USING THIS CURRENT LIST.
--- NOTE | 2018-11-09 10:54 | NUR ---
PHYSICAL THERAPY PAtient eating breakfast. Maryana Prasad,PT
[2018-11-09 11:40] LABS: BASO # 0.1 10*3/uL (0.0-0.1); BASO % 0.5 % (0.0-1.0); EOS # 0.1 10*3/uL (0.0-0.4); EOS % 0.9 % (1.0-4.0); HEMATOCRIT 40.6 % (42.0-52.0); HEMOGLOBIN 13.3 g/dl (14.0-18.0); LYMPH # 0.7 10*3/uL (1.3-4.4); LYMPH % 7.3 % (27.0-41.0); MEAN CELL VOLUME 92.7 fl (80.0-94.0); MEAN CORPUSCULAR HGB 30.4 pg (27.0-31.0); MEAN CORPUSCULAR HGB CONC 32.8 g/dl (33.0-37.0); MEAN PLATELET VOLUME 9.7 fl (9.6-12.3); MONO % 10.4 % (3.0-9.0); NEUT # 7.4 10*3/uL (2.3-7.9); NEUT % 80.6 % (47.0-73.0); PLATELET COUNT AUTOMATED 188 10*3/uL (130-400); RED BLOOD COUNT 4.38 10*6/uL (4.50-5.90); WHITE BLOOD COUNT 9.2 10*3/uL (4.8-10.8)
--- NOTE | 2018-11-09 11:43 | NUR ---
PHYSICAL THERAPY Nursing screen received. PT orders also received. Thank you. Maryana Prasad,PT
[2018-11-09 11:59] LABS: BUN 18 mg/dl (7-24); CHLORIDE 107 mmol/L (98-107); CREATININE 1.22 mg/dL (0.70-1.30); POTASSIUM 3.8 mmol/L (3.5-5.1); SODIUM 141 mmol/L (136-145)
[2018-11-09 12:00] VITALS: BP 160/76
--- NOTE | 2018-11-09 12:23 | NUR ---
PHYSICAL THERAPY PAtient having echo. Maryana Prasad,PT
--- NOTE | 2018-11-09 12:24 | NUR ---
Patient not available for Occupational Therapy as he is having an ECHO. Fina Jiang OTR/l
--- NOTE | 2018-11-09 12:33 | NUR ---
Retail Service Technician in to see patient. He is currently having an echo done at bedside. Will follow up at a later time.
--- NOTE | 2018-11-09 13:00 | NUR ---
PHYSICAL THERAPY PAtient evaluated on 5, full evalaution to follow. Continue with PT as per plan of care with fall, recent fall prior to admitt with closed head injury, alarm and acute debility precaution. Would benefit from SNF. Patient is moderate complexity via chart review, tests and evaluation: [id number]. Thank you for this referral. Maryana Prasad,PT
--- NOTE | 2018-11-09 13:31 | NUR ---
Occupational Therapy evaluation completed on 5 with full eval to follow. Precautions include fall risk, history of multiple falls, new ww use recommended. Patient is moderate complexity level 02225 via chart review, testing and evaluation. Recommend OT per POC and SNF to enable home alone. Fina Jiang OTR/L
--- NOTE | 2018-11-09 13:40 | NUR ---
Discussed with patient short term SNF and he is agreeable to either [facility], [facility], or [facility] for therapy. vacation planner notified.
--- NOTE | 2018-11-09 14:34 | NUR ---
Patient requesting referral to [facility]. Contacted facility and faxed initial referral. They do not have an available bed today, but may have a discharge tomorrow, will follow. Patient requires 3 night stay.
--- NOTE | 2018-11-09 15:23 | NUR ---
Recommend follow up for wound care in outpatient setting patient being discharge to another facility at this time.
[2018-11-09 16:00] VITALS: BP 167/92
--- NOTE | 2018-11-09 17:30 | NUR ---
PATIENT ASSISTED UP TO RR, C/O DIZZINESS WITH SITTING UP, BODY STIFF AND SORE FROM FALLING THURSDAY. HANDS/FINGERS/WRISTS RED/SWOLLEN/WARM/PAINFUL, HE IS ABLE TO USE WALKER TO STAND AND WALK WITH HELP.
--- NOTE | 2018-11-09 18:02 | NUR ---
PATIENT HAD EMESIS AFTER DRINKING A LARGE AMOUNT OF GRAPE JUICE, STATES FEELS BETTER AFTER THROWING UP.
[2018-11-09 20:00] VITALS: BP 125/53
[2018-11-10] VITALS: BP 132/62
--- NOTE | 2018-11-10 01:25 | NUR ---
NOTIFIED OF PAIN/SWELLING TO BL WRISTS. NEW ORDERS FOR XRAYS IN AM TO FOLLOW.
[2018-11-10 06:43] LABS: BASO # 0.1 10*3/uL (0.0-0.1); BASO % 0.6 % (0.0-1.0); EOS # 0.1 10*3/uL (0.0-0.4); EOS % 0.7 % (1.0-4.0); HEMATOCRIT 38.7 % (42.0-52.0); HEMOGLOBIN 12.1 g/dl (14.0-18.0); LYMPH # 1.1 10*3/uL (1.3-4.4); LYMPH % 12.3 % (27.0-41.0); MEAN CELL VOLUME 93.5 fl (80.0-94.0); MEAN CORPUSCULAR HGB 29.2 pg (27.0-31.0); MEAN CORPUSCULAR HGB CONC 31.3 g/dl (33.0-37.0); MEAN PLATELET VOLUME 10.1 fl (9.6-12.3); MONO # 1.4 10*3/uL (0.1-1.0); MONO % 15.8 % (3.0-9.0); NEUT # 6.2 10*3/uL (2.3-7.9); NEUT % 70.3 % (47.0-73.0); PLATELET COUNT AUTOMATED 188 10*3/uL (130-400); RED BLOOD COUNT 4.14 10*6/uL (4.50-5.90); WHITE BLOOD COUNT 8.9 10*3/uL (4.8-10.8)
[2018-11-10 06:53] LABS: BUN 20 mg/dl (7-24); CHLORIDE 107 mmol/L (98-107); POTASSIUM 4.4 mmol/L (3.5-5.1); SODIUM 141 mmol/L (136-145)
[2018-11-10 08:16] VITALS: BP 160/68
--- NOTE | 2018-11-10 09:00 | NUR ---
Icu Rn in to see patient. No new needs or request at this time. When medically stable and 3 night stay he will be discharged to a short term SNF. associate media planner following.
--- NOTE | 2018-11-10 09:27 | NUR ---
Pt seen for 25 minutes of 1:1 OT this date. Pt verifies name and verbally, wrist band checked. Pt in bed eating breakfast upon arrival. Pt has difficulty opening juice, requires min A for one then able to open the other one with use of straw. Pt completes bed mobility due to leaning to left, requires moderate assitance due to left wrist pain. Pt completes supine to sit, Mod A due to not being able to push up using left wrist due to pain. Pt completes UB exercises in all planes x 20 with rest periods as needed. Pt completes sit to stand with use of ww, with max verbal cues for hand positioning for optimal safety and to decrease fall risk. pt completes functional mobilty from bed to w/c in room with max verbal cues for correct hand placement and correct use of ww for optimal safety. Pt is taken down to ex-ray by patient attendant. Maria Elena echeverria
--- NOTE | 2018-11-10 10:59 | NUR ---
[facility] not [facility] any available beds at this time; referral faxed to patients 2nd choice, [facility]; waiting on review/acceptance.
--- NOTE | 2018-11-10 13:35 | NUR ---
Patient is accepted to [facility], 3 night stay complete, hospital exemption complete; Patient is ok to go if medically stable for discharge.
--- NOTE | 2018-11-10 13:50 | NUR ---
Np in to see patient. Discussed possibility of being discharged to [facility] today and he is agreeable. supply planner notified. He states he doesn't have a way to get there.
--- NOTE | 2018-11-10 14:00 | NUR ---
PHYSICAL THERAPY PT SUPINE IN BED ON SOA INTEGRATION ARCHITECT ARRIVAL TO TREATMENT. PT STATES THAT HIS WRISTS ARE STILL BOTHERING HIM, BUT DENIES LEG PAIN. PT AGREEABLE TO TREATMENT. PT GIVEN BASSAM TO TRANSFER SUPINE TO SIT EOB, MIN-CGA TO STAND AT 2WW. PT ABLE TO STAND X3 MINS WITH CGA AT 2WW. PT THEN HAD SEATED REST, FOLLOWED BY GAIT TRAINING WITH CGA FOR SAFETY, 40'X1 AND 50' X1 WITH 2WW, WITH SEATED REST X2 MINS DUE TO FATIGUE. NO SOB WITH GAIT, VCS REQUIRED FOR PROPER 2WW USE, TO STEP INTO ALKER AND AVOID EXCESSIVE FOWARD FLEXION. PT REQUIRED BASSAM FOR STS FROM LOW SURFACE DUE TO INABLILITY TO PUSH WITH UE DUE TO WRIST PAIN, AND BASSAM REQUIRED FOR BED MOBILITY AND VCS FOR TECHNIQUE. BED ALARM APPLIED, CALL LIGHT IN REACH, NO NEW C/O. TOTAL TX TIME 1:1 32 MINS. STEPHEN SCHMID SOA INTEGRATION ARCHITECT
--- NOTE | 2018-11-10 14:05 | NUR ---
PHYSICAL THERAPY Patient seen this pm 1:1 for therapy visit and was sitting EOB with case management present upon therapist arrival. Patient performed sit to stand transfer with MOD/BEAD WORKER SEWING, demonstrating POOR upright posture secondary to increased B LE muscle weakness. Patient ambulated BEAD WORKER SEWING/Mod to bathroom, 15'x 1, decreased upright posture and decreased stride. Patient completed toilet transfer with L side grab bar, CGA prior to returning to supine in bed, 20'x 1, BEAD WORKER SEWING/Mod. Patient needed instruction on improving smoother gait pattern with increased stride, while demonstrating increased fatigue. Patient remained in bed with call light, tray table and bed alarm for safety. Will continue per POC as tolerated, total treatment time 14 minutes. Jose L Choi, LOGGING OPERATIONS INSPECTOR
[2018-11-10 16:00] VITALS: BP 122/61
--- NOTE | 2018-11-10 17:25 | NUR ---
DISCHARGE ORDER OBTAINED FOR PATIENT TO GO TO [facility] TODAY. PHONED THE FACILITY TO ENSURE BED AVAILABILITY. PER FUEL CELL REPAIRER AND STAFF NURSES AT [facility], PATIENT IS NOT ON LIST FOR ACCEPTED PATIENTS TO BE ADMITTED TO THE FACILITY TODAY. DR. CRANDALL NOTIFIED OF THIS; PER HIM, DISCHARGE POSTPONED UNTIL TOMORROW.
--- NOTE | 2018-11-10 18:18 | NUR ---
DISCHARGE WOUND PHOTOS TAKEN IN PREPARATION FOR DISCHARGE TOMORROW.
--- NOTE | 2018-11-10 18:46 | NUR ---
[facility] CARE STAFF PHONED IN, THEY CAN TAKE THE PATIENT TONIGHT. DR. MIKE NOTIFIED PATIENT GOING TONIGHT.
[2018-11-10 20:00] VITALS: BP 124/52
--- NOTE | 2018-11-10 20:15 | NUR ---
REPORT GIVEN TO ONESIMO AT [facility].
--- NOTE | 2018-11-10 21:15 | NUR ---
Discharge instructions sent with patient to [facility] Follow-up care arranged. Written instructions given to patient/family. JANETT FRANCISCO
--- NOTE | 2018-11-11 07:33 | NUR ---
PHYSICAL THERAPY CO-SIGN I approve of the Phyical Therapy notes written above. MONIKA SIMPSON PT
[2019-01-22] MEDS ORDERED: VITAMIN D32000 UNI1 PO (10:57)
== END 2018-11-10 21:15 | disposition other institution (70) | DRG 124 ==
LOC: ED 20:19 → 5E 23:42 → EDHOLD 23:42 → EDBEDREQ 23:57 → 5E 23:58
PROVIDERS: Internal Medicine; Student in an Organized Health Care Education/Training Program; ADMIT Emergency Medicine
PROC: 0HQ1XZZ Repair Face Skin, External Approach (ICD-10-PCS; principal; 2018-11-07)
DX: S01.111A Laceration without foreign body of right eyelid and periocular area, initial encounter (principal); N17.0 Acute kidney failure with tubular necrosis; D68.59 Other primary thrombophilia; I16.0 Hypertensive urgency; E86.0 Dehydration; N40.0 Benign prostatic hyperplasia without lower urinary tract symptoms; F32.9 Major depressive disorder, single episode, unspecified; K21.9 Gastro-esophageal reflux disease without esophagitis; W01.0XXA Fall on same level from slipping, tripping and stumbling without subsequent striking against object, initial encounter; E78.00 Pure hypercholesterolemia, unspecified; E66.3 Overweight; Z98.49 Cataract extraction status, unspecified eye; Z87.891 Personal history of nicotine dependence; Z83.6 Family history of other diseases of the respiratory system; Z80.0 Family history of malignant neoplasm of digestive organs; R26.2 Difficulty in walking, not elsewhere classified; R00.0 Tachycardia, unspecified; Y93.29 Activity, other involving ice and snow; Y92.89 Other specified places as the place of occurrence of the external cause; Y99.8 Other external cause status; D50.9 Iron deficiency anemia, unspecified; Z88.2 Allergy status to sulfonamides; Z88.0 Allergy status to penicillin; I48.91 Unspecified atrial fibrillation

== ENCOUNTER 2019-06-05 20:10 | Emergency (ER) | payer MEDICARE ==
[~2019-06-05] VITALS: Ht 170.1 cm; Wt 75.7 kg
[~2019-06-05 20:10] MED LIST changes: +DILTIAZEM 24HR180 MG PO; +VITAMIN D32000 UNI1 PO
== END 2019-06-05 22:14 | disposition home or self-care (01) ==
LOC: ED 20:10
DX: S51.812A Laceration without foreign body of left forearm, initial encounter (principal); S51.811A Laceration without foreign body of right forearm, initial encounter; S00.83XA Contusion of other part of head, initial encounter; I48.91 Unspecified atrial fibrillation; J44.9 Chronic obstructive pulmonary disease, unspecified; E11.9 Type 2 diabetes mellitus without complications; I10 Essential (primary) hypertension; K21.9 Gastro-esophageal reflux disease without esophagitis; E78.00 Pure hypercholesterolemia, unspecified; Z88.2 Allergy status to sulfonamides; Z88.0 Allergy status to penicillin; Z79.899 Other long term (current) drug therapy; Z87.891 Personal history of nicotine dependence; W22.8XXA Striking against or struck by other objects, initial encounter; Y93.89 Activity, other specified; Y92.89 Other specified places as the place of occurrence of the external cause; Y99.8 Other external cause status

== ENCOUNTER 2019-06-14 21:54 | Inpatient (IN) | payer MEDICARE ==
[~2019-06-14] VITALS: Ht 170.1 cm; Wt 82.8 kg
[2019-06-14 21:55] VITALS: BP 140/79
[2019-06-14 22:18] LABS: BASO % 0.5 % (0.0-1.0); EOS % 0.5 % (1.0-4.0); HEMATOCRIT 42.1 % (42.0-52.0); LYMPH # 0.8 10*3/uL (1.3-4.4); LYMPH % 9.5 % (27.0-41.0); MEAN CELL VOLUME 94.6 fl (80.0-94.0); MEAN CORPUSCULAR HGB 31.5 pg (27.0-31.0); MEAN CORPUSCULAR HGB CONC 33.3 g/dl (33.0-37.0); MEAN PLATELET VOLUME 10.6 fl (9.6-12.3); MONO # 1.5 10*3/uL (0.1-1.0); MONO % 18.4 % (3.0-9.0); NEUT # 5.6 10*3/uL (2.3-7.9); NEUT % 70.3 % (47.0-73.0); PLATELET COUNT AUTOMATED 236 10*3/uL (130-400); RED BLOOD COUNT 4.45 10*6/uL (4.50-5.90); WHITE BLOOD COUNT 7.9 10*3/uL (4.8-10.8)
[2019-06-14 22:24] VITALS: BP 129/82
--- NOTE | 2019-06-14 22:25 | NUR ---
PATIENTS HEARTRATE 130'S- DR RIVAS NOTIFIED OF THIS AND GIVEN EKG AT [facility]
--- NOTE | 2019-06-14 22:25 | NUR ---
PATIENTS HEARTRATE IN THE 130'S DR RIVAS NOTIFIED OF THIS AND GIVEN EKG AT THIS TIME. RN WILL CONT TO MONITOR PATIENT. CONT MEDIA CONSULTANT OUTSIDE SALES AND PULSE OX IN PLACE.
[2019-06-14 22:29] LABS: ACT PARTIAL THROMBO TIME 30.4 SECONDS (20.0-32.1); INTERNATIONAL NORM RATIO 1.3 (2.0-3.5)
[2019-06-14 22:34] LABS: ALBUMIN 3.3 gm/dl (3.1-4.5); ALKALINE PHOSPHATASE 89 U/L (45-117); BUN 19 mg/dl (7-24); CHLORIDE 103 mmol/L (98-107); CREATININE 1.19 mg/dL (0.70-1.30); LIPASE 196 U/L (73-393); POTASSIUM 3.7 mmol/L (3.5-5.1); SGOT/AST 12 IU/L (3-35); SGPT/ALT 13 U/L (12-78); SODIUM 137 mmol/L (136-145); TOTAL PROTEIN 7.1 gm/dL (6.4-8.2); TROPONIN I < 0.015 ng/ml (<0.045)
[2019-06-14 22:50] VITALS: BP 113/82
--- NOTE | 2019-06-14 22:50 | NUR ---
PATIENT MOVED TO ROOM 2 DUE TO HEART RHYTHM GOING INTO V-TACH IN ROOM 14. DR RIVAS NOTIFIED OF THIS AND IS CURRENTLY AT BEDSIDE WITH PATIENT. PATIENT ALERT AND ORIENTED. NO DISTRESS NOTED. ONLY COMPLAINT IS CHEST TIGHTNESS AT THIS TIME. RN WILL CONT TO MONITOR. DR RIVAS TO CALL CARDIOLOGY AT THIS TIME.
[2019-06-14 23:04] VITALS: BP 128/84
[2019-06-14 23:16] VITALS: BP 124/74
[2019-06-14 23:45] VITALS: BP 134/82
[2019-06-15] VITALS (15 sets, daily range): BP systolic 89–198; BP diastolic 50–98
--- NOTE | 2019-06-15 00:30 | NUR ---
DR RIVAS ORDERED AMIODARONE AT THIS TIME, BUT PER DR RIVAS TO HOLD UNTIL HE GETS IN TOUCH WITH CARDIOLOGY.
--- NOTE | 2019-06-15 00:40 | NUR ---
PER DR RIVAS AND CARDIOLOGY- PATIENT IS A-FIB WITH RVR AND WILL BE ADMITTED HERE TO [facility]. PATIENT NOTIFIED OF THIS.
--- NOTE | 2019-06-15 00:45 | NUR ---
PATIENT ORDER FOR AMIODARONE TO BE CANCELLED PER DR RIVAS AND TO GIVE CARDIZEM 10MG IV PUSH AT THIS TIME.
--- NOTE | 2019-06-15 01:00 | NUR ---
PATIENT STABLE AT THIS TIME. NO DISTRESS NOTED. ALERT AND ORIENTED. CALL LIGHT WITHIN REACH. RN WILL CONT TO MONITOR.
--- NOTE | 2019-06-15 01:30 | NUR ---
BRUISING NOTED TO PATIENTS FACE AND AROUND EYES FROM FALL HE HAD ON May. NO DRAINAGE NOTED AND NO OPEN WOUNDS ON PATIENTS BODY.
--- NOTE | 2019-06-15 01:43 | NUR ---
A 88, admitted to , under the services of ANGÉLICA Escudero DO with a diagnosis of AFIB RVR. Chief complaint is WEAKNESS. Patient arrived via stretcher from ER. Monitor applied. Initial assessment completed. Vital signs taken and recorded. ANGÉLICA ESCUDERO DO notified of admission to the unit. Orders received. See assessment for past medical history, medications and allergies. Patient and/or family oriented to unit. [facility] visitation policy reviewed. Clothing/patient valuable form completed. ИВАН THOMPSON
--- NOTE | 2019-06-15 01:50 | NUR ---
NURSE TO NURSE REPORT GIVEN TO RN HARDIK AT BEDSIDE.. PATIENT ALERT AND ORIENTED. NO DISTRESS NOTED.
--- NOTE | 2019-06-15 02:10 | NUR ---
PATIENT VOIDED 100CC OF DARK JAMAAL URINE. STATES HE HAS NOT URINATED IN A FEW DAYS. URINE SAMPLE WAS ACCIDENTLY THROWN AWAY BY PA. PATIENT STATES "IT WILL BE A FEW MORE DAYS UNTIL I CAN PEE AGAIN". BLADDER SCANNED FOR LESS THAN [address] MUSA MADE AWARE. ALSO MADE AWARE THAT PATIENT WAS NOT STARTED ON A CARDIZEM DRIP IN THE ER. HEART RATE CURRENTLY AFIB WITH A RATE BETWEEN 120-150. PATIENT WAS 88% ON ROOM AIR. PLACED ON 2L NC. MADE AWARE.
--- NOTE | 2019-06-15 02:15 | NUR ---
PATIENT UNAWARE OF MEDICAION TAKEN AT HOME.
--- NOTE | 2019-06-15 02:18 | NUR ---
DR KURTZ'S ANSWERING SERVICE AWARE OF CONSULT. REQUESTED CALL BACK
--- NOTE | 2019-06-15 02:22 | NUR ---
SPOKE WITH DR KURTZ. STATES TO START CARDIZEM DRIP AND KEEP RATED BELOW 100. STATES WILL SEE PATIENT IN THE MORNING.
--- NOTE | 2019-06-15 02:35 | NUR ---
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 PATIENT IS RESTING IN BED WATCHING TV. STATES HE FEELS "TIRED". DENIES CHEST PAIN OR SHORTNESS OF BREATH
--- NOTE | 2019-06-15 02:38 | NUR ---
MILK OF MAG GIVEN PER ORDER. PATIENT STATES HE HAS NOT HAD A BOWEL MOVEMENT SINCE 06/04/19. HYPOACTIVE BOWEL SOUNDS
--- NOTE | 2019-06-15 03:13 | NUR ---
CALL MADE TO DR KURTZ REGARDING VFIB
--- NOTE | 2019-06-15 03:16 | NUR ---
SPOKE WITH DR KURTZ REGARDING PATIENT. STATES TO ORDER MAG SULFATE 2G IV ONE TIME, AND TRANSFER TO [facility]
--- NOTE | 2019-06-15 03:30 | NUR ---
PT TAKEN OFF FLOOR AT THIS TIME. BEING TRANSFERRED TO ICU BED 3 PER 'S ORDERS.
--- NOTE | 2019-06-15 03:47 | NUR ---
PT. RECEIVED FROM Jana, REPORT RECEIVED FROM ИВАН. HEP LOCK IN LA ASYMPT AND RW. LUNGS DIMINISHED BUT CLEAR BILAT, PULSE OX 97% ON 2L NC. ABDOMEN FIRMLY DISTENDED, HYPOACTIVE. TRACE BLE EDEMA NOTED >LEFT. CARDIZEM DRIP REMAINS ON ORDERED AT 10MG/HR VIA RA, SITE ASYMPT. MAG RUNS VIA LA, SITE ALSO ASYMPT. VITAL SIGNS 100.7-106-19, 134/78. PULSE OX 97% ON 2L NC GUNNAR DOUGLAS RN
--- NOTE | 2019-06-15 04:23 | NUR ---
RESTING IN BED WITH HOB ELEVATED. SIDE RAILS UP X'S 2. CALL LIGHT IN REACH. CARDIZEM CONT. NO C/O'S VOICED.
[2019-06-15 05:00] LABS: BASO % 0.4 % (0.0-1.0); EOS % 0.5 % (1.0-4.0); HEMOGLOBIN 13.1 g/dl (14.0-18.0); LYMPH # 0.9 10*3/uL (1.3-4.4); LYMPH % 12.1 % (27.0-41.0); MEAN CELL VOLUME 94.8 fl (80.0-94.0); MEAN CORPUSCULAR HGB CONC 32.8 g/dl (33.0-37.0); MEAN PLATELET VOLUME 10.7 fl (9.6-12.3); MONO # 1.4 10*3/uL (0.1-1.0); MONO % 19.2 % (3.0-9.0); NEUT # 4.9 10*3/uL (2.3-7.9); NEUT % 67.3 % (47.0-73.0); PLATELET COUNT AUTOMATED 198 10*3/uL (130-400); RED BLOOD COUNT 4.22 10*6/uL (4.50-5.90); WHITE BLOOD COUNT 7.3 10*3/uL (4.8-10.8)
[2019-06-15 05:34] LABS: ALBUMIN 2.7 gm/dl (3.1-4.5); ALKALINE PHOSPHATASE 80 U/L (45-117); BUN 18 mg/dl (7-24); CHLORIDE 105 mmol/L (98-107); FREE T4 1.33 ng/dl (0.76-1.46); HDL CHOLESTEROL 32 mg/dl (40-60); PHOSPHOROUS 3.5 mg/dL (2.5-4.9); POTASSIUM 3.6 mmol/L (3.5-5.1); SGOT/AST 13 IU/L (3-35); SGPT/ALT 13 U/L (12-78); SODIUM 138 mmol/L (136-145); TOTAL PROTEIN 6.5 gm/dL (6.4-8.2); TRIGLYCERIDES 77 mg/dl (<150); VLDL CHOLESTEROL 15 mg/dL (6-40)
[2019-06-15 05:40] LABS: CHOLESTEROL 132 mg/dL (<200); LDL CHOLESTEROL 85 mg/dL (9-159)
--- NOTE | 2019-06-15 06:09 | NUR ---
REMAINS WITHOUT C/O'S. MONITOR REMAINS A-FIB. VR IN THE 80'S NOW. CONDITION GUARDED.
--- NOTE | 2019-06-15 08:15 | NUR ---
Nursing screen received and chart reviewed. Patient admitted for increased fatigue and had a recent fall. If there is a decline in ADLs and functional transfers/mobility, please send OT referral. Thank you, Cee Menon, OTR/L
--- NOTE | 2019-06-15 08:27 | NUR ---
Nursing screen receieved and chart reviewed. Patient admitted for increased fatigue and recent falls. If patient has decreased ADLs and functional transfers/mobility, please send OT referral. Thank you. Cee Menon, OTR/L
--- NOTE | 2019-06-15 08:36 | NUR ---
PHYSICAL THERAPY Nursing screen received and chart reviewed. Patient would benefit from skilled PT services. When medically appropriate please order PT evaluation. Thank you, Sidra Mast, SPT Misti Maria, PT,DPT
[2019-06-15 08:37] LABS: VITAMIN D, 25-HYDROXY 30.3 ng/mL (30-100)
[2019-06-15 09:21] LABS: BILIRUBIN 1+ (NEGATIVE); BLOOD NEGATIVE (NEGATIVE); CLARITY CLEAR (CLEAR); COLOR YELLOW (YELLOW); GLUCOSE NEGATIVE (NEGATIVE); KETONE TRACE (NEGATIVE); LEUKO ESTERASE NEGATIVE (NEGATIVE); NITRITE NEGATIVE (NEGATIVE); SPECIFIC GRAVITY >= 1.030 (1.005-1.030)
--- NOTE | 2019-06-15 09:32 | NUR ---
MEDICATED WITH NORCO FOR C/O SEVERE BACK PAIN RATED A 7. [facility]
[2019-06-15 09:34] LABS: EPITHELIAL CELLS 0-2; RBC 0-2 rbc/hpf (0-2); WBC 0-2 wbc/hpf (0-5)
[2019-06-15] MEDS ORDERED: CARDIZEM CD180 MG PO (11:15)
[2019-06-15] MEDS ORDERED: PRAVACHOL20 MG PO (11:16)
--- NOTE | 2019-06-15 20:01 | NUR ---
PT. UP TO BSC WITH ASSIST. HEP LOCK IN LA AND RW ASYMPT. CARDIZEM DRIP INFUSING ORDERED, HR 80'S. LUNGS DIMINISHED BUT CLEAR BILAT. ABDOMEN SOFT, NONDISTENDED AND NORMO. NO PERIPHERAL EDEMA NOTED. RESP. EASY AND REG ,NO DISTRESS. GUNNAR DOUGLAS, RN
--- NOTE | 2019-06-15 21:08 | NUR ---
WANDACO GIVEN AT 2108 FOR COMPLAINTS OF GENERALIZED ACHES AND PAINS AND SORENESS FROM FALLS. BED ALARM ON FOR PT SAFETY.
--- NOTE | 2019-06-15 22:47 | NUR ---
PT. STATES CHIN JACKSON.
[2019-06-16] VITALS (7 sets, daily range): BP systolic 97–112; BP diastolic 58–87
--- NOTE | 2019-06-16 01:40 | NUR ---
PT'S HR TO 35 NONSUSTAINED, HR OF 50-60'S SUSTAINED. CARDIZEM DRIP TURNED OFF AT THIS TIME. GUNNAR DOUGLAS RN
[2019-06-16 04:40] LABS: BASO % 0.6 % (0.0-1.0); EOS # 0.2 10*3/uL (0.0-0.4); EOS % 2.4 % (1.0-4.0); HEMOGLOBIN 13.4 g/dl (14.0-18.0); LYMPH # 0.9 10*3/uL (1.3-4.4); LYMPH % 12.9 % (27.0-41.0); MEAN CELL VOLUME 96.9 fl (80.0-94.0); MEAN CORPUSCULAR HGB 31.7 pg (27.0-31.0); MEAN CORPUSCULAR HGB CONC 32.7 g/dl (33.0-37.0); MEAN PLATELET VOLUME 10.4 fl (9.6-12.3); MONO # 1.2 10*3/uL (0.1-1.0); MONO % 17.3 % (3.0-9.0); NEUT # 4.6 10*3/uL (2.3-7.9); NEUT % 65.5 % (47.0-73.0); PLATELET COUNT AUTOMATED 222 10*3/uL (130-400); RED BLOOD COUNT 4.23 10*6/uL (4.50-5.90); RED CELL DISTRI WIDTH 14.3 % (0-14.5)
[2019-06-16 04:52] LABS: BUN 25 mg/dl (7-24); CHLORIDE 108 mmol/L (98-107); CREATININE 1.03 mg/dL (0.70-1.30); POTASSIUM 3.5 mmol/L (3.5-5.1); SODIUM 139 mmol/L (136-145)
--- NOTE | 2019-06-16 08:05 | NUR ---
PT MEDICATED WITH NORCO FOR C/O GENERALIZED PAIN. PT MOANS AND CRIES OUT WITH ANY MOVEMENT IN BED.
--- NOTE | 2019-06-16 08:59 | NUR ---
PHYSICAL OPTICS TEACHER GUNNAR CONTEH MADE AWARE PT WAS DOWNGRADED TO MONITORED PT.
--- NOTE | 2019-06-16 09:58 | NUR ---
PHYSICAL THERAPY Physical therapy evaluation offered. Patient states, "No. I hurt too bad." Request to come back at a later. Will try again at a later time/date. Thank you. Misti Maria, PT,DPT
--- NOTE | 2019-06-16 10:00 | NUR ---
Occupational Therapy evaluation offered this date in [facility]. Patient declined stating that he was not feeling well and in pain. Nursing confirmed that patient was in significant pain when staff assisted him in bed and nurse gave pain medication withing the last 1-1/2 hrs. OTR will attempt evaluation at a later date. Thank you Fina Jiang OTR/Hernesto
--- NOTE | 2019-06-16 10:30 | NUR ---
Batter Mixer Helper in to talk to patient. Patient states lives at home alone with his 2 sons checking in on him. One lives in [facility] [place] and the other lives in [place] There are no steps in the home. There are elevators. Physician: Dr. Shwetha Moreland Pharm[place]: [place] Home health services: none Patient's level of ADLs: independent Patient has working utilities: yes DME: none Follow-up physician's appointment after d/c: will be made by the hospitalist nurse director upon discharge Does patient want to access PORTAL?: no Discharge plan discussed with patient. He lives at [facility] alone with his 2 sons checking in on him. He is independent in his ADLS and ambulation. Discussed short term SNF and home health care services and he denies any home needs at this time. He does have someone who comes to his apartment to clean. When medically stable he will be discharged to home. ELISSA MCCABE
--- NOTE | 2019-06-16 12:21 | NUR ---
MEDICATED PT PER PRN ORDER WITH NORCO FOR PT'S C/O "KIDNEY PAIN". WHEN ASKED PT TO RATE PAIN ON SCALE 1-10 HE STATED "MY PAIN IS WAY ABOVE THAT". WILL CONTINUE TO MONITOR PT.
--- NOTE | 2019-06-16 12:23 | NUR ---
Nutritional Support Services Note: Pt is eating 100% of meals served. Regular diet as ordered. Will follow as needed. Juany Trinidad Rdn Ld
--- NOTE | 2019-06-16 13:03 | NUR ---
PT TRANSFERED TO ROOM 509-1 AT THIS TIME. REPORT GIVEN TO SOLOMON GLOVER.
--- NOTE | 2019-06-16 13:20 | NUR ---
SEWING DEPARTMENT SUPERVISOR spoke with the patient about SNF. Patient stated "I'm hurting to bad right now to think about it. I need to get better before I can think about it". SEWING DEPARTMENT SUPERVISOR will follow up with the patient at a later time. -YULI Rao
--- NOTE | 2019-06-16 14:30 | NUR ---
PHYSICAL THERAPY Physical therapy evaluation offered. Patient continues to have complaints of pain all over. Patient requesting PT try later. Will attempt PT evaluation at a later date. Thank you. Misti Maria,PT,DPT.
--- NOTE | 2019-06-16 14:53 | NUR ---
POULTRY BARN MANAGER received notice that the patient does have a Metallographic Technician with [facility] -Kayy ZaragozaDzdmyb-[phone].
--- NOTE | 2019-06-16 22:01 | NUR ---
PT C/O PAIN TO BACK. NORCO GIVEN AT THIS TIME. WILL MONITOR FOR EFFECTIVENESS. CALL LIGHT IN REACH.
--- NOTE | 2019-06-16 23:01 | NUR ---
CHIN EFFECTIVE PER PT.
[2019-06-17] VITALS: BP 116/64
--- NOTE | 2019-06-17 01:32 | NUR ---
PT YELLING OUT IN ROOM. UPON ENTERING ROOM PT IS FOUND TO BE SITTING ON BEDSIDE AND STATES THAT HE IS HAVING A LOT OF PAIN. DR MILLER NOTIFIED AND NEW ORDERS RECEIVED TO GIVE PT 2 MG MORPHINE VIA IV NOW. PT MEDICATED AT THIS TIME. WILL MONITOR FOR EFFECTIVENESS. PT ASSISTED BACK TO BED. ALL SAFETY MEASURES IN PLACE. CALL LIGHT IN REACH.
[2019-06-17 08:00] VITALS: BP 118/78
--- NOTE | 2019-06-17 09:00 | NUR ---
Layout Inspector in to see patient. Discussed short term SNF and he refuses stating he will be going back to [facility]. Discussed home health care services and he denies any home needs at this time. When medically stable he will be discharged to home.
--- NOTE | 2019-06-17 09:10 | NUR ---
PHYSICAL THERAPY Physical therapy evaluation attempted. Patient eating breakfast at this time. Will try PT evaluation at a later time/date. Thank you. Misti Maria,PT,DPT
--- NOTE | 2019-06-17 10:57 | NUR ---
PATIENT COMPLAINED OF PAIN AT A 03/21. PATIENT REQUESTED NORCO. NORCO GIVEN. WILL ASSESS FOR EFFECTIVENESS.
--- NOTE | 2019-06-17 11:07 | NUR ---
CEMENT FINISHER left message for Kayy Zaragoza, Patient Qa Analyst with [facility].-YULI Rao
--- NOTE | 2019-06-17 11:30 | NUR ---
PHYSICAL THERAPY Physical therapy evaluation offered. Patient stating, "I'm pretty tired right now," and refusing PT evaluation at this time. Will try PT evaluation at a later time/date. Thank you. Misti Maria,PT,DPT.
--- NOTE | 2019-06-17 11:34 | NUR ---
Occupational Therapy evaluation offered this date. Patient seated in recliner and stated"I'm pretty tired right now," and declined OT evaluation. OTR will attempt at another time. Lawrence Jiang OTR/kenn
[2019-06-17 12:00] VITALS: BP 90/50
--- NOTE | 2019-06-17 12:00 | NUR ---
PATIENT STATED BARKHAMSTED WAS EFFECTIVE. WILL CONTINUE TO MONITOR. BED LOCKED AND IN LOWEST POSITION. CALL LIGHT WITHIN REACH.
--- NOTE | 2019-06-17 14:15 | NUR ---
YULI received call back from Kayy Zaragoza, patient Senior Service Ladle Puller. She stated patient has been refusing Aides the last two weeks. She stated he was referred to their services through [facility]. She stated the patient son lives in [place], they had a falling out but are now on speaking terms. The Ladle Puller stated she has attempted to get the patient to apply for Medicaid but he refuses. He is also refusing meal delivery services. She stated when he does allow the Aide in, the Aide will bring him meals. She stated the patient does have food in his apartment. The Ladle Puller stated she has tried to get the patient to let her get funiture for the patients apartment, but he refuses. He currently only has a bed, plastic chair, a small table. The pai gow manager stated that she is going to speak with her Supervisior about pursuing Guardianship over the patient. The Ladle Puller is planning on speaking with the patient who is currently refusing SNF. -YULI Rao
--- NOTE | 2019-06-17 15:14 | NUR ---
Occupational Therapy eval complete on 5 with full eval to follow. Precautions include fall risk, bed and body alarm, IV UE, and new ww use, moderate complexity level 31388 via chart review, testing, and eval. Recommend OT per POC and discharge to SNF to enable safe return home at prior level of independence. Thank you for this referral. Raad Dennison S/OT Fina Jiang OTR/L
--- NOTE | 2019-06-17 15:15 | NUR ---
PHYSICAL THERAPY Physical therapy evaluation complete, 5E. Full evaluation/details to follow. Moderate complexity PT evaluation (58144) per chart review and evaluation. PT to progress with transfers, gait, and safety per POC. Recommend SNF at discharge. Thank you. Misti Maria,PT,DPT
--- NOTE | 2019-06-17 15:30 | NUR ---
OTR walking by room,noticed patient was standing with personal alarm stretched to limit and not alarming yet. When approached, patient indicated that he needed to use the toilet. OTR moved walker to patient requested he use walker.Patient was able to ambulate to the bathroom with min assist to maneuver the wh walker and for standing balance. Patient given min assist to perform stand to sit and sit to stand afterwards. Patient performed toilet hygiene at [place] and clothes management w/ CGA. Patient returned to recliner, personal alarm attached, tray table placed in front of patient, call light in reach. luggage attendant informed of need to shorten personal alarm for max safety. Social service staff informed OTR that patient was in agreement to SNF after he spoke with his classification case manager from Senior services. Continue with OT per POC and SNF upon d/c. Fina Jiang OTR/kenn
--- NOTE | 2019-06-17 15:33 | NUR ---
24 HOUR CHART CHECK COMPLETE.
--- NOTE | 2019-06-17 15:59 | NUR ---
MEDICAL REVIEWER received a call that Kayy Zaragoza was in with the patient and wanting to discuss SNF options. MEDICAL REVIEWER spoke with the patient and Kayy. [facility] MEDICAL REVIEWER notified [facility] who stated she would review the referral on Thursday. -YULI Rao
[2019-06-17 16:00] VITALS: BP 95/63
[2019-06-17 20:00] VITALS: BP 108/60
[2019-06-18] VITALS: BP 110/58
--- NOTE | 2019-06-18 01:38 | NUR ---
24 HR chart check completed.
--- NOTE | 2019-06-18 02:18 | NUR ---
AWAKE UP TO BATHROOM WITH ASSISTANCE AND BACK TO BED. OFFERED PAIN MED BUT PATIENT DENIED NEED FOR IT EVEN THOUGHT HE MOANS WITH MOVEMENT.
--- NOTE | 2019-06-18 06:44 | NUR ---
NORCO GIVEN PER ORDER FOR GENERALIZED PAIN. RATED 05/21 SEE DEC.
--- NOTE | 2019-06-18 07:29 | NUR ---
Shift chart check completed.
[2019-06-18 08:00] VITALS: BP 119/72
--- NOTE | 2019-06-18 08:03 | NUR ---
Hep Lock discontinued, Site symptomatic/LEAKING AT SITE. Pressure applied. Sterile dressing applied. RADHA DANIELLE IV started left forearm with #22 protective cath after 1 attempts. Site prepped with Chloroprep. Sterile dressing applied. Patient tolerated procedure well. RADHA DANIELLE
--- NOTE | 2019-06-18 11:18 | NUR ---
PATIENT BATHED COMPLETE AFTER VERY LOOSE LIGHT BROWN COLORED STOOL ALL OVER BATHROOM & SELF. BACK TO BED TO REST AFTER CLEANED UP.
[2019-06-18 12:00] VITALS: BP 129/81
[2019-06-18] MEDS ORDERED: METOPROLOL SUCC50 M1 PO (12:22)
[2019-06-18] MEDS ORDERED: LISINOPRIL2.5 MG PO (12:22)
[2019-06-18] MEDS ORDERED: ALDACTONE25 MG PO (12:22)
--- NOTE | 2019-06-18 13:34 | NUR ---
Hep Lock discontinued. Site asymptomatic. Pressure applied. Sterile dressing applied. BETO ACUNA
--- NOTE | 2019-06-18 14:03 | NUR ---
Discharge instructions reviewed with patient/family. Patient receptive and verbalizes understanding. Follow-up care arranged. Written instructions given to patient/family. RADHA DANIELLE
--- NOTE | 2019-06-18 14:34 | NUR ---
ATTEMPTED TO CALL EVERY NUMBER IN THE PATIENT'S PHONE TO REACH GABRIELE MORFINR - FRIEND WHO LIVES AT [facility] BUT UNSUCCESSFUL PER THE PATIENT'S SON HE DOES NOT KNOW THE NUMBER EITHER.
--- NOTE | 2019-06-18 15:51 | NUR ---
STILL UNABLE TO REACH ANYONE TO TAKE THE PATIENT HOME. PER THE PATIENT BILL USUALLY CALLS HIM ONCE A DAY. PT INSTRUCTED TO CALL THE STAFF IF GABRIELE CALLS
[2019-06-18 16:00] VITALS: BP 114/76
--- NOTE | 2019-06-18 17:00 | NUR ---
SPOKE WITH TRANSPLANT IMMUNOLOGIST TEMI & DR MELENDEZ. FRIEND GABRIELE BRITO IS UNABLE TO SAFELY TAKE THE PATIENT HOME TODAY BUT WILL COME GET HIM TOMORROW AROUND 1-1:30 AFTER BUDDHISM. PATIENT KEYS FOUND IN LINING OF HIS PANTS POCKET. PT WILL REMIAN IN THE HOSPITAL TONIGHT./
[2019-06-18 20:00] VITALS: BP 110/71
[2019-06-19] VITALS: BP 121/72
--- NOTE | 2019-06-19 06:36 | NUR ---
24 HR chart check completed.
[2019-06-19 08:00] VITALS: BP 110/56
--- NOTE | 2019-06-19 11:38 | NUR ---
CONSULT CALLED TO [facility]
[2019-06-19 12:00] VITALS: BP 119/76
[2019-06-19 16:00] VITALS: BP 133/73
[2019-06-19 20:00] VITALS: BP 119/76
--- NOTE | 2019-06-19 20:45 | NUR ---
PATIENT RESTING IN BED IN A POSITION OF COMFORT AT THIS TIME. DENIES ANY CHEST PAIN/PRESSURE OR SHORTNESS OF BREATH AT THIS TIME. MEDICATIONS GIVEN ORALLY, LIDODERM PATCH PLACED ON LOWER THORACIC, MID SPINAL AREA WHERE PATIENT INDICATED PAIN WAS THE WORST, STATED THAT IT FELT SOME BETTER AFTER APPLICATION. CALL LIGHT WITHIN REACH. WILL [id number] TO MONITOR.
--- NOTE | 2019-06-19 22:11 | NUR ---
PT MEDICATED WITH PRN NORCO FOR C/O BACK PAIN RATED AN 8/10. WILL MONITOR FOR EFFECTIVENESS.
[2019-06-20] VITALS: BP 155/89
--- NOTE | 2019-06-20 00:15 | NUR ---
ASSISTED PATIENT FROM BED TO RECLINER AT THIS TIME AT HIS REQUEST FOR COMFORT. TAB ALARM APPLIED TO PATIENT GOWN. REVIEWED WITH PATIENT CALL LIGHT USE AND TO NOT GET OUT OF CHAIR ON OWN. CALL LIGHT WITHIN REACH. WILL CONTINUE TO MONITOR.
[2019-06-20 06:29] LABS: BASO # 0.1 10*3/uL (0.0-0.1); BASO % 0.8 % (0.0-1.0); EOS # 0.1 10*3/uL (0.0-0.4); EOS % 1.7 % (1.0-4.0); HEMATOCRIT 40.5 % (42.0-52.0); HEMOGLOBIN 13.2 g/dl (14.0-18.0); LYMPH # 1.4 10*3/uL (1.3-4.4); LYMPH % 17.3 % (27.0-41.0); MEAN CELL VOLUME 96.2 fl (80.0-94.0); MEAN CORPUSCULAR HGB 31.4 pg (27.0-31.0); MEAN CORPUSCULAR HGB CONC 32.6 g/dl (33.0-37.0); MEAN PLATELET VOLUME 10.7 fl (9.6-12.3); MONO % 12.9 % (3.0-9.0); NEUT # 5.2 10*3/uL (2.3-7.9); NEUT % 66.3 % (47.0-73.0); PLATELET COUNT AUTOMATED 268 10*3/uL (130-400); RED BLOOD COUNT 4.21 10*6/uL (4.50-5.90); RED CELL DISTRI WIDTH 14.6 % (0-14.5); WHITE BLOOD COUNT 7.8 10*3/uL (4.8-10.8)
[2019-06-20 06:51] LABS: BUN 28 mg/dl (7-24); CHLORIDE 110 mmol/L (98-107); CREATININE 1.14 mg/dL (0.70-1.30); POTASSIUM 3.6 mmol/L (3.5-5.1); SODIUM 143 mmol/L (136-145)
[2019-06-20 08:00] VITALS: BP 115/74
--- NOTE | 2019-06-20 09:23 | NUR ---
RESIDENTIAL ROOFER spoke with the patient about his referral to [facility]. Patient stated he wants to do PT/OT as Outpatient and does not want to go to [facility]. He stated that he would be able to drive himself or a friend would take him. RESIDENTIAL ROOFER notified Distribution Associate Misti. -YULI Rao
--- NOTE | 2019-06-20 10:13 | NUR ---
OT NOTE Pt was seen this A.M. 1:1 for 23 minute OT session. Upon arrival pt was sitting upright in the recliner. Pt identified by name and and had complaints of "moderate low back pain." While seated requested for pt to doff and ze B socks, pt was able to complete with modA for inital start of task of sequencing and donning over his toes. Pt completed sit to stand transfer from chair level with Aarti and use of w/w for UE support. Upon inital rise pt had bouts of retrograde posture that required modA to correct. Educated pt on correcting his stance/foot placement and he had good carry over when verbal prompts were provided however had poor carry over with no verbal prompts. Challenged pt's dynamic standing balance needed for increased I and enhanced safety. While weight shifting, crossing midline, and reaching over all planes pt was able to maintain F- standing balance requiring Aarti/UE support. Pt then completed functional mobility into the bathroom with CGA and use of w/w for UE support. Pt required occasional verbal prompts for w/w safety due to impulsive turns and lifting all four point off the ground, pt had fair carry over. Pt then transferred on to standard commode with Aarti due to poor safety with alignment and off with modA due to low surface. Clothing management completed with Aarti. Pt then stood sink side with CGA while washing his hands. While coming out of the bathroom pt had initally left without the walker, pt required max verbal prompts to correct. Pt was left sitting upright in the recliner with call light in hand, tray table in place, and body alarm activated for safety. Continue with rec D/C plan to SNF. JOSE EDUARDO Morfin/Hernesto
--- NOTE | 2019-06-20 10:30 | NUR ---
Gem Expert in to see patient. He is sitting up in his bedside chair without distress noted. Discussed [facility] and he is no longer agreeable. Discussed OP therapy at the [facility] in [place]. He states "that is to far to drive. It is about 3 miles." He states he will go to a place called [place] where the old equipment from the [facility] was relocated. He states he can drive himself there. When medically stable he will be discharged to home. charhouse worker notified.
--- NOTE | 2019-06-20 10:35 | NUR ---
PHYSICAL THERAPY Patient seen this am 1:1 for therapy visit and was sitting up in bedside chair upon therapist arrival. Patient was pleasant voicing no c/o's pain and performed seated B LE therex, all planes, x 10 reps each as a warm up prior to gait tranining. Patient transfers sit to stand MIN A, needing v/c to improve safe transfer technique and ambulated with use of wh walker, 50'x 1, then additional 40'x 1, CGA. Patient demonstrated bouts of increased velocity, unsteady gait pattern and LOB x 1 during 180 turn around. Patient also very unsteady while backing up and fatigues quickly, requiring brief seated rest break between gait trials. Patient returned to bedside chair and remained with call light, tray table, cell phone and body alarm for safety. Will continue per POC as tolerated, total treatment time 18 minutes. Joes L Choi, PLASTICS FABRICATION SUPERVISOR
[2019-06-20 12:00] VITALS: BP 115/62; BP 1165/62
--- NOTE | 2019-06-20 15:00 | NUR ---
METAL GAUGE MAKER left message for a return call with patients Vault Person Kayy Zaragoza. -YULI Rao
--- NOTE | 2019-06-20 15:44 | NUR ---
PHYSICAL THERAPY CO-SIGN I approve of the Physical Therapy notes written above. ELISSA GALEAS PT,DPT
[2019-06-20 16:00] VITALS: BP 113/80
[2019-06-20 20:00] VITALS: BP 104/77
--- NOTE | 2019-06-20 20:51 | NUR ---
24 HR chart check completed.
--- NOTE | 2019-06-20 21:00 | NUR ---
IN RECLINER, DOZING INTERMITTENTLY. RESPIRATIONS EASY. LUNGS DIMINISHED, CLEAR. PULSE OX 93% RA. +1 BLE EDEMA, TEDS PLACED AT BEDSIDE. CALL LIGHT WITHIN REACH. NO VOICED COMPLAINTS. BED ALARM MAINTAINED FOR SAFETY
--- NOTE | 2019-06-20 21:54 | NUR ---
MEDICATED WITH NORCO PER PRN ORDER FOR COMPLAINTS OF GENERALIZED ACHES AND PAINS RATING A 6. CALL LIGHT WITHIN REACH. WILL MONITOR FOR EFFECTIVENESS
--- NOTE | 2019-06-20 23:00 | NUR ---
MEDS APPEAR EFFECTIVE. SLEEPING. RESPIRATIONS EASY. CALL LIGHT WITHIN REACH. BED ALARM MAINTAINED
[2019-06-21] VITALS: BP 116/69
--- NOTE | 2019-06-21 00:30 | NUR ---
SLEEPING IN RECLINER. RESPIRATIONS EASY. VSS. CALL LIGHT WITHIN REACH
--- NOTE | 2019-06-21 03:00 | NUR ---
SLEEPING IN RECLINER. BED ALARM MAINTAINED
--- NOTE | 2019-06-21 06:00 | NUR ---
RETED THROUGHOUT NIGHT WITH NO DISTRESS NOTED. RESPIRATIONS EASY. CALL LIGHT WITHIN REACH. BED ALARM MAINTAINED FOR SAFETY
--- NOTE | 2019-06-21 07:38 | NUR ---
MEDICATED WITH TYLENOL PER PRN ORDER FOR COMPLAINTS OF BACK PAIN RATING A 5. CALL LIGHT WITHIN REACH. WILL MONITOR FOR EFFECTIVENESS
--- NOTE | 2019-06-21 07:46 | NUR ---
ASBESTOS WIRE FINISHER faxed updates to [facility]. ASBESTOS WIRE FINISHER will speak with the patient about placement to their facility. ASBESTOS WIRE FINISHER will reach out to patients Actuarial Internship Kayy Zaragoza with [facility] to see if they will go after Guardianship of patient. -YULI Rao
[2019-06-21 08:00] VITALS: BP 136/84
--- NOTE | 2019-06-21 08:13 | NUR ---
YULI spoke with patient Senior Service Certified Nuclear Medicine Technologist Kayy Zaragoza who stated her Boring Mill Set Up Operator Vertical will intiate Guardianship through [facility]. Will await for return call from Kayy. -YULI Rao
--- NOTE | 2019-06-21 08:38 | NUR ---
OT NOTE Pt was seen this A.M. 1:1 for 18 minute OT session. Upon arrival pt was sitting upright in the recliner. Pt identified by name and and had complaints of "10/10 low back pain." Sit to stand completed from chair level with modA and use of w/w for UE support. Functional mobility was completed into the bathroom with CGA and use of w/w. There he transferred on/off standard commode with Aarit for safety with alignment and due to low surface. Clothing management completed with Aarti and toilet hygiene completed with supervision while seated. Pt then stood sink side while washing his hands with CGA for safety. Functional mobility then completed back to the recliner, however pt required max verbal prompts for walker safety due to walking away without increasing risk of falls. Pt was left sitting upright in the recliner with call light in hand, tray table in place, and body alarm activated for safety. Continue with rec D/C plan to SNF. JOSE EDUARDO Morfin/Hernesto
--- NOTE | 2019-06-21 09:23 | NUR ---
PHYSICAL THERAPY Patient presented to therapy in sitting in bedside chair with report of 11/10 pain in his mid back. Patient is not on spO2 at this time. Patient sit to stand transfer from EOB with MOD A X 2 with verbal cues for pushing off of armrests of chair with hands. Patient performed ambulation with Front Wh Walker and CGA X 1 for 18' X 1 and then seated rest break. Patient sit to stand again with MOD A X 2. Patient ambulated another 60' x 2 with Front Wheeled and CGA X 1 and one standing rest break. Patient transferred back to bedside chair with MIN A X 1. Patient was left in bedsde chair with call light within reach, chair alarm tested and attached and tray table near patient. Patient was 1:1 with this MACHINE TECHNICIAN for 18 minutes total. SUNI PHILLIPS MACHINE TECHNICIAN
[2019-06-21 12:00] VITALS: BP 115/78
--- NOTE | 2019-06-21 12:12 | NUR ---
YULI received notice [facility] will not be able to accept the patietn into their facility. -YULI Rao
--- NOTE | 2019-06-21 13:10 | NUR ---
YULI reached out to SS/CM Kayy Zaragoza. She stated her Produce Wrapper did contact [facility] about the patient and obtaining Guardianship. She stated she also reached out to the patients son who stated he wanted a second Compentency Evaluation done on the patient because he does not agree with what was said in the first one. Kayy stated APS worker Magali Samayoa or Renetta Carlson would be in to assess/speak with the patient. DIETITIAN TEACHING spoke with the patient about SNF placement. DIETITIAN TEACHING talked to the patient about his PT needs to assist in his strengthening. Patient stated he wanted to go to the [facility] in the [facility] and that he could drive himself there. Patient stated "I've been to the one on [address] before and it seems very regimen and [place]." Patient stated he would like home healthcare if its available to him so he does not have to drive. Patient [facility]. Will await to hear from [facility] and his CM Kayy Zaragoza. -YULI Rao
[2019-06-21 16:00] VITALS: BP 124/76
--- NOTE | 2019-06-21 16:40 | NUR ---
PT YELLING OUT IN PAIN WITH ANY MOVEMENT. STATES PAIN IS 10/10. NORCO GIVEN AT THIS TIME. WILL CONT MONITOR. CALL LIGHT IN REACH.
--- NOTE | 2019-06-21 17:40 | NUR ---
CHIN EFF. WILL CONT TO MONITOR. CALL LIGHT IN REACH.
--- NOTE | 2019-06-21 19:44 | NUR ---
24 HR chart check completed.
[2019-06-21 20:00] VITALS: BP 142/92
[2019-06-22] VITALS: BP 108/64; BP 132/80
--- NOTE | 2019-06-22 02:08 | NUR ---
Patient sleeping. Respirations relaxed and easy. Personal alarm in place. . [place] on. GALILEA MORALES
--- NOTE | 2019-06-22 07:13 | NUR ---
POWER BARKER received an after hours call from patients Security Patrol Driver Kayy Zaragoza. She stated she would like the patient referred to [facility]. POWER BARKER is waiting to see if there are any beds available at either facilities and will make the referral. POWER BARKER will also speak with the patient about going to the facility. [facility] has been contacted through [facility]-Kayy Zaragoza. -YULI Rao
[2019-06-22 08:00] VITALS: BP 119/91
--- NOTE | 2019-06-22 08:25 | NUR ---
OT NOTE PATIENT SEEN THIS A.M. FOR 15 MINUTE SESSION. PATIENT IDENTIFIED BY NAME AND DATE OF . UPON ARRIVAL PATIENT SEATED UPRIGHT IN CHAIR. C/O BACK PAIN THIS DAY. PATIENT ABLE TO COMPLETE SIT TO STAND TO FWW REQUIRING MIN A X2. PATIENT ABLE TO COMPLETE FUNCTIONAL MOBILITY WITH FAIR BALANCE AT CGA. PATIENT ENDED SESSION SEATED UPRIGHT IN CHAIR WITH ALARM SET. AZUCENA STUART
--- NOTE | 2019-06-22 08:45 | NUR ---
PHYSICAL THERAPY Patient seen this am 1:1 for therapy visit and was sitting up in bedside chair upon therapist arrival. Patient voices 10/10 low back pain and needed a little encouragement for active participation. Patient transfered sit to stand from low chair surface, Min A, demonstrating initial retrograde posture while falling back into chair. Patient educated on improved transfer technique and was able to complete sit to stand CGA x 1 with v/c for proper hand placement. Patient ambulates with use of wh walker, 50'x 1, CGA, demonstrating very slow, antalgic gait pattern. Patient also unsteady with all 90/180 turns and returned to bedside chair with mild fatigue. Patient remained in chair with call light, tray table, telephone and body alarm for safety. Will continue per POC as tolerated, total treatment time 17 minutes. Jose L Choi, SWIM INSTRUCTOR
--- NOTE | 2019-06-22 08:56 | NUR ---
MIXER OPERATOR HOT METAL spoke with the patient. He stated he is agreeable to go to [facility]. Patient stated he was in a lot of pain and thinks he might have an infection. MIXER OPERATOR HOT METAL spoke with RN-Katrina about this, she is aware. YULI spoke with Constanza at [facility]. She stated a bed would be available sometime tomorrow if the patient is accepted to their facility. YULI faxed referral. -YULI Rao
[2019-06-22 12:00] VITALS: BP 115/69
--- NOTE | 2019-06-22 14:57 | NUR ---
OUTSIDE PLANT FIELD ENGINEER received notice the patient is not appropriate for [facility], however there is be a bed avaialable at [facility]. Constanza from [facility] is reaching out to the patients son to explain 20 days at 100% coverage and then patient will have have a co pay of $170.50. YULI reached out to Senior Service Rug Hooker Kayy Zaragoza and left a voicemail for a return call. -YULI Rao
--- NOTE | 2019-06-22 15:01 | NUR ---
Notified Dr. James of [facility] able to take patient today if he is medically stable.
--- NOTE | 2019-06-22 15:20 | NUR ---
YULI completed HENs. [facility] notified YULI of her contacting the patients son and is aware of the $170.50 copay after 20 days. YULI still has not heard back from Senior Service Insurance Coordinator Kayy Zaragoza. Patient is accepted at [facility]. -YULI Rao
--- NOTE | 2019-06-22 15:30 | NUR ---
EMBEDDED PROCESSOR notified of patient discharge. EMBEDDED PROCESSOR spoke with RN-Katrina. EMBEDDED PROCESSOR contacted [facility] to schedule 5pm pickup. EMBEDDED PROCESSOR faxed over demographics to [facility] and faxed over discharge orders to [place]. EMBEDDED PROCESSOR contacted next of kin Gopi Kern and he is aware of patients discharge. -YULI Rao
--- NOTE | 2019-06-22 15:49 | NUR ---
REPORT CALLED TO KENA SU[facility]
[2019-06-22 16:00] VITALS: BP 133/74
--- NOTE | 2019-06-22 16:50 | NUR ---
PT DISCHARGED AT THIS TIME VIA [facility] TO [facility].
--- NOTE | 2019-06-23 08:30 | NUR ---
PHYSICAL THERAPY CO-SIGN I approve of the Physical Therapy notes written above. ELISSA GALEAS PT,DPT
--- NOTE | 2019-06-23 10:29 | NUR ---
OCCUPATIONAL THERAPY CO-SIGN I approve of the Occupational Therapy notes written above. MANSI ALVAREZ OTR/[place]
== END 2019-06-22 16:50 | disposition other institution (70) | DRG 189 ==
LOC: ED 21:54 → EDHOLD 06-15 00:22 → ICCU 06-15 00:22 → 5E 06-15 00:36 → ICCU 06-15 03:41 → 5E 06-16 13:04
PROVIDERS: Family Medicine; Internal Medicine; Student in an Organized Health Care Education/Training Program; ADMIT Internal Medicine
DX: J96.01 Acute respiratory failure with hypoxia (principal); E43 Unspecified severe protein-calorie malnutrition; D68.59 Other primary thrombophilia; R65.10 Systemic inflammatory response syndrome (SIRS) of non-infectious origin without acute organ dysfunction; E87.2 Acidosis; M62.82 Rhabdomyolysis; I50.22 Chronic systolic (congestive) heart failure; I42.9 Cardiomyopathy, unspecified; I48.91 Unspecified atrial fibrillation; E80.6 Other disorders of bilirubin metabolism; N40.0 Benign prostatic hyperplasia without lower urinary tract symptoms; J44.9 Chronic obstructive pulmonary disease, unspecified; F32.9 Major depressive disorder, single episode, unspecified; E11.9 Type 2 diabetes mellitus without complications; K21.9 Gastro-esophageal reflux disease without esophagitis; E78.00 Pure hypercholesterolemia, unspecified; E11.65 Type 2 diabetes mellitus with hyperglycemia; R00.0 Tachycardia, unspecified; E83.41 Hypermagnesemia; E87.8 Other disorders of electrolyte and fluid balance, not elsewhere classified; I48.2 Chronic atrial fibrillation; R41.9 Unspecified symptoms and signs involving cognitive functions and awareness; I11.0 Hypertensive heart disease with heart failure; I08.1 Rheumatic disorders of both mitral and tricuspid valves; Z90.89 Acquired absence of other organs; Z98.42 Cataract extraction status, left eye; Z98.41 Cataract extraction status, right eye; Z87.891 Personal history of nicotine dependence; Z82.49 Family history of ischemic heart disease and other diseases of the circulatory system; Z83.6 Family history of other diseases of the respiratory system; Z80.0 Family history of malignant neoplasm of digestive organs; Z88.2 Allergy status to sulfonamides; Z88.0 Allergy status to penicillin; Z79.899 Other long term (current) drug therapy; Z79.01 Long term (current) use of anticoagulants; Z68.27 Body mass index [BMI] 27.0-27.9, adult; Z60.2 Problems related to living alone

== ENCOUNTER 2019-07-18 14:25 | Emergency (ER) | payer MEDICARE ==
[~2019-07-18] VITALS: Wt 63.5 kg
[2019-07-18] VITALS (9 sets, daily range): BP systolic 120–154; BP diastolic 71–92
--- NOTE | ~2019-07-18 | EKG ---
[place], [place] ELECTROCARDIOGRAM REPORT NAME: SISI SHOEMAKER UNIT #: [id number] ROOM: DOCTOR: EPIPHANY DRAFT REPORT BIRTHDATE: [birth year] [facility] Test Date: 2019-07-18 Test Time: 21:54:02 Pat Name: SISI SHOEMAKER Department: Room: [facility] Gender: M Director Online Marketing: : 1930 Requested By: ADRIANNA BOYD Order Number: [id number] Reading MD: Heavenly De Leon MD Measurements Intervals [place] Rate: 105 P: [place]: QRS: -35 QRSD: 144 T: 112 QT: 399 QTc: 528 Interpretive Statements Atrial fibrillation Ventricular premature complex Left bundle branch block Baseline wander in lead(s) V1,V2,V3,V4 Compared to ECG 06/14/2019 22:56:59 Ventricular premature complex(es) now present Left bundle-branch block now present Intraventricular conduction delay no longer present Left ventricular hypertrophy no longer present Early repolarization no longer present Myocardial infarct finding no longer present Electronically Signed On 07-21-2019 13:29:26 PDT by Heavenly De Leon MD CM:EKGRPT:ELECTROCARDIOGRAM REPORT [id number] ADRIANNA BOYD MD EPIPHANY DRAFT REPORT ADRIANNA BOYD MD
--- NOTE | ~2019-07-18 | EKG ---
[place], [place] ELECTROCARDIOGRAM REPORT NAME: SISI SHOEMAKER UNIT #: [id number] ROOM: DOCTOR: EPIPHANY DRAFT REPORT BIRTHDATE: [birth year] [facility] Test Date: 2019-07-18 Test Time: 14:42:19 Pat Name: SISI SHOEMAKER Department: Room: 003 Gender: M Land Department Head: : 1930 Requested By: ADRIANNA BYOD Order Number: [id number] Reading MD: Heavenly De Leon MD Measurements Intervals [place] Rate: 146 P: [place]: QRS: -41 QRSD: 133 T: 103 QT: 355 QTc: 554 Interpretive Statements Wide-QRS tachycardia Left bundle branch block Compared to ECG 06/14/2019 22:56:59 Left bundle-branch block now present Atrial fibrillation no longer present Intraventricular conduction delay no longer present Left ventricular hypertrophy no longer present Early repolarization no longer present Myocardial infarct finding no longer present Electronically Signed On 07-21-2019 13:25:33 PDT by Heavenly De Leon MD CM:EKGRPT:ELECTROCARDIOGRAM REPORT [id number] ADRIANNA PINZONANY DRAFT REPORT ADRIANNA BOYD MD
--- NOTE | ~2019-07-18 | EKG ---
[place], [place] ELECTROCARDIOGRAM REPORT NAME: SISI SHOEMAKER UNIT #: [id number] ROOM: DOCTOR: EPIPHANY DRAFT REPORT BIRTHDATE: [birth year] [facility] Test Date: 2019-07-18 Test Time: 17:41:57 Pat Name: SISI SHOEMAKER Department: Room: 003 Gender: M Electrical Products Sales Engineer: : 1930 Requested By: ADRIANNA BOYD Order Number: [id number] Reading MD: Heavenly De Leon MD Measurements Intervals [place] Rate: 128 P: [place]: QRS: -54 QRSD: 137 T: 107 QT: 375 QTc: 548 Interpretive Statements Atrial fibrillation Ventricular premature complex Left bundle branch block Compared to ECG 06/14/2019 22:56:59 Ventricular premature complex(es) now present Left bundle-branch block now present Intraventricular conduction delay no longer present Left ventricular hypertrophy no longer present Early repolarization no longer present Myocardial infarct finding no longer present Electronically Signed On 07-21-2019 13:27:36 PDT by Heavenly De Leon MD CM:EKGRPT:ELECTROCARDIOGRAM REPORT [id number] ADRIANNA MONAHAN DRAFT REPORT ADRIANNA BOYD MD
[~2019-07-18 14:25] MED LIST changes: +ALDACTONE25 MG PO; +CARDIZEM CD180 MG PO; +LISINOPRIL2.5 MG PO; +METOPROLOL SUCC50 M1 PO; +PRAVACHOL20 MG PO
[2019-07-18 15:12] LABS: HEMATOCRIT 45.9 % (42.0-52.0); HEMOGLOBIN 14.9 g/dl (14.0-18.0); MEAN CELL VOLUME 97.2 fl (80.0-94.0); MEAN CORPUSCULAR HGB 31.6 pg (27.0-31.0); MEAN CORPUSCULAR HGB CONC 32.5 g/dl (33.0-37.0); MEAN PLATELET VOLUME 10.7 fl (9.6-12.3); PLATELET COUNT AUTOMATED 203 10*3/uL (130-400); RED BLOOD COUNT 4.72 10*6/uL (4.50-5.90); RED CELL DISTRI WIDTH 15.3 % (0-14.5); WHITE BLOOD COUNT 13.7 10*3/uL (4.8-10.8)
[2019-07-18 15:28] LABS: ACT PARTIAL THROMBO TIME 29.6 SECONDS (20.0-32.1); ALBUMIN 3.1 gm/dl (3.1-4.5); ALKALINE PHOSPHATASE 90 U/L (45-117); BUN 38 mg/dl (7-24); CHLORIDE 106 mmol/L (98-107); CPK 464 U/L (39-308); CREATININE 1.23 mg/dL (0.70-1.30); INTERNATIONAL NORM RATIO 1.3 (2.0-3.5); POTASSIUM 3.6 mmol/L (3.5-5.1); SGOT/AST 35 IU/L (3-35); SGPT/ALT 21 U/L (12-78); SODIUM 141 mmol/L (136-145)
[2019-07-18 15:31] LABS: TROPONIN I 0.254 ng/ml (<0.045)
--- NOTE | 2019-07-18 15:33 | NUR ---
TROPONIN 0.254 DR BOYD NOTIFIED
[2019-07-18 15:34] LABS: BILIRUBIN 2+ (NEGATIVE); BLOOD 2+ (NEGATIVE); CLARITY SL CLOUDY (CLEAR); COLOR YELLOW (YELLOW); GLUCOSE NEGATIVE (NEGATIVE); KETONE 1+ (NEGATIVE); LEUKO ESTERASE NEGATIVE (NEGATIVE); NITRITE NEGATIVE (NEGATIVE); SPECIFIC GRAVITY 1.025 (1.005-1.030)
[2019-07-18 15:37] LABS: TOTAL CELLS COUNTED 100 #CELLS
[2019-07-18 15:38] LABS: PLATELET SUFFICIENCY NORMAL (NORMAL)
[2019-07-18 15:40] LABS: BACTERIA TRACE; EPITHELIAL CELLS 0-2; RBC 16-20 rbc/hpf (0-2); WBC 0-2 wbc/hpf (0-5)
[2019-07-18 15:41] LABS: MUCOUS TRACE
--- NOTE | 2019-07-18 17:10 | NUR ---
PT TO CT AT THIS TIME.
--- NOTE | 2019-07-18 18:39 | NUR ---
ATTEMPTED TO CALL [facility] FOR [facility] NUMBER. THEY WILL CALL WHEN NURSE IS ASSIGNED TO PT.
--- NOTE | 2019-07-18 19:16 | NUR ---
REPORT RECEIVED FROM DOUGLAS
--- NOTE | 2019-07-18 20:48 | NUR ---
RESTING QUIETLY WITH EYES CLOSED AND IN NO OBVIOUS DISTRESS. HR 109.
--- NOTE | 2019-07-18 21:48 | NUR ---
NOTIFIED MD OF TROPONIN LEVELS 0.191
--- NOTE | 2019-07-18 21:51 | NUR ---
Transfer Out, from the Emergency Department - Stable This patient, SISI SHOEMAKER, [place], 34, [id number], [id number], was examined by the Emergency Department physician, Dr. OLIVER RASMUSSEN,ADRIANNA and efforts were made to stabilize the patient. The patient's condition is stable. The reason for transfer is need higher level of care . The Emergency physician has made the decision to transfer the patient out. Refer to the ED physician's dictation for the family/back-up physician notified. The attending physician has spoken to the accepting physician at the receiving facility, [facility]. Refer to the ED physician's dictation. The receiving facility has space and qualified personnel to care for the patient, and has agreed to accept the patient. Proper equipment and trained personnel have been arranged. The mode of transport is ground. The agency is [facility]. The Emergency physician has spoken to the transport staff re: patient's condition and needs during transport. Copies of the medical record have been forwarded to the receiving facility, including: - Emergency Department record: - name, address, hospital number, age, next of kin - presenting problem - history of injury, past medical history - treatment, medications & route, fluid type & volume - lab and xray findings, films - physical findings - vitals signs -- prehospital, emergency, pre-transfer - preliminary diagnosis - status/condition - emergency medical services record - consent for transfer - authorization for record release - name of any involed physicians -- responsive or not - name and address of referring physician - name of contact physician at receiving facility - name of accepting physician at receiving facility Nursing report has been given to BEN. Valuables include CLOTHING. and were given to PATIENT. ARNULFO WATSON
--- NOTE | 2019-07-18 21:52 | NUR ---
[facility] HERE TO TRANSPORT PATIENT, EKG COMPARISON BEFORE TRANSFER
--- NOTE | 2019-07-19 07:50 | NUR ---
YULI received a call from [facility]-Magali Wesley. YULI informed her the patient was transfered to [facility]. -YULI Rao
== END 2019-07-18 21:44 | disposition short-term general hospital (02) ==
LOC: ED 14:25 → EDHOLD 18:14 → ED 18:14
PROVIDERS: Emergency Medicine
DX: S32.019A Unspecified fracture of first lumbar vertebra, initial encounter for closed fracture (principal); S22.089A Unspecified fracture of T11-T12 vertebra, initial encounter for closed fracture; I48.20 Chronic atrial fibrillation, unspecified; G93.40 Encephalopathy, unspecified; M25.551 Pain in right hip; J44.9 Chronic obstructive pulmonary disease, unspecified; E11.9 Type 2 diabetes mellitus without complications; I10 Essential (primary) hypertension; K21.9 Gastro-esophageal reflux disease without esophagitis; E78.00 Pure hypercholesterolemia, unspecified; Z88.2 Allergy status to sulfonamides; Z88.0 Allergy status to penicillin; Z79.899 Other long term (current) drug therapy; Z87.891 Personal history of nicotine dependence; W19.XXXA Unspecified fall, initial encounter; Y93.89 Activity, other specified; Y92.038 Other place in apartment as the place of occurrence of the external cause; Y99.8 Other external cause status